=== PATIENT | female | born 1960 | race Caucasian/White ===

== ENCOUNTER 2017-07-12 19:58 | Inpatient (IN) | payer OTHER, MEDICAID ==
[~2017-07-12] VITALS: Ht 162.6 cm; Wt 102.1 kg
[~2017-07-12 19:58] MED LIST: ALBUTEROL2.5 MG/0.5 INH; CELEXA20 MG PO; KLOR-CON 1010 MEQ PO; LASIX 40 MG TAB40 M2 PO; LEVOFLOXACIN750 MG PO; MONTELUKAST SOD10 MG PO; PREDNISONE 10 M10 MG PO; PRINIVIL20 MG PO; PROAIR HFA8.5 GM; PROAIR HFA8.5 GM INH; SYMBICORT160 MCG/4. INH; TUDORZA PRESS400 MCG IH; ZESTORETIC 20-1 EAC3 PO
[2017-07-12 20:06] VITALS: BP 145/83
[2017-07-12] MEDS ORDERED: METHOTREXATE 22.5 MG PO (20:09)
[2017-07-12] MEDS ORDERED: VITAMIN D5000 UNI1 PO (20:10)
[2017-07-12 20:55] LABS: HEMATOCRIT 42.9 % (37.0-47.0); HEMOGLOBIN 14.4 gm/dL (12.0-15.0); MCHC 33.4 g/dL (28.0-37.0); MCV 95.9 fL (80.0-100.0); MPV 7.6 fl. (7.2-11.1); NUCLEATED RBCS 0 /100WBC; PLATELET COUNT* 400 thou/uL (150-400); RBC 4.48 mil/uL (4.20-5.00); RDW-CV 14.2 % (10.5-14.5); WBC 19.4 thou/uL (4.0-11.0)
[2017-07-12 21:04] LABS: CALCIUM 9.1 mg/dL (8.5-10.1); CREATININE 0.9 mg/dL (0.6-1.3); POTASSIUM 4.2 mmol/L (3.5-5.1)
[2017-07-12 21:14] LABS: ALBUMIN 3.9 g/dL (3.4-5.0); MAGNESIUM 2.3 mg/dL (1.8-2.4); TOTAL BILIRUBIN 0.3 mg/dL (<0.1-1.0); TOTAL PROTEIN 7.7 g/dL (6.4-8.2)
[2017-07-12 21:22] LABS: ABSOLUTE LYMPHOCYTES 2.7 thou/uL (0.8-5.3); ABSOLUTE MONOCYTES 0.8 thou/uL (0.0-1.2); ABSOLUTE NEUTROPHILS 15.9 thou/uL (1.6-8.1)
[2017-07-12 21:24] LABS: PLATELET ESTIMATE ADEQUATE
[2017-07-12 22:23] LABS: BE 7.8 mmol/L (-2 to +3); HCO3 34.2 mmol/L (22.0-26.0); PO2 60.2 mmHg (75.0-100.0); pH 7.419 (7.340-7.450)
[2017-07-12 22:28] LABS: PCO2 54.1 mmHg (35.0-45.0)
[2017-07-12 22:58] VITALS: BP 130/80
[2017-07-13] MEDS ORDERED: IBUPROFEN 400400 M2 PO (01:11)
[2017-07-13 04:22] VITALS: BP 131/75
[2017-07-13 07:53] VITALS: BP 124/80
--- NOTE | 2017-07-13 09:03 | NUR ---
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, TRACING SR- UPON ASSESSMENT PT NOTED TO BE RESTING IN BED, WATCHING TV- PT A&O X4- CONTINENT OF BOWEL AND BLADDER- SBA WITH TRANSFERS FOR SAFETY- DIMINISHED IN UPPER LOBES, WHEEZING NOTED IN BASES- DYSPNEA NOTED ON EXERTION- VSS, O2 SAT 92% ON 3.5 L VIA NC- ABDOMEN SOFT/ROUND/NON-TENDER, BS X4 QUADS- PT REPORTS LAST BM 07/12/17- IV NOTED TO LEFT AC INTACT AND SL- IV ABT GIVEN THIS AM PRESCIBED, NO ADVERSE REACTIONS TO NOTE- NICOTENINE PATCH APPLIED THIS AM TO RIGHT UPPER SHOULDER PRESCIBED/INDICATED- TRACE EDEMA NOTED TO BILATERAL ANKLES- PT DENIES ANY C/O PAIN/DISCOMFORT AT THIS TIME- GOOD PO INTAKE NOTED THIS AM WITH BREAKFAST- CALL LIGHT AND PERSONAL BELONGINGS WITH IN REACH- HOURLY ROUNDS IN PLACE R/T SAFETY/NEEDS- ALL NEEDS MET AT THIS TIME-WCTM
--- NOTE | 2017-07-13 09:33 | EKG ---
[place] [address] ELECTROCARDIOGRAM REPORT Name: THELMA SOLIS Room: [address] IN [facility]#: [id number] Admission: 07/12/17 Attend Phys: Agustín Griffin MD Discharge: Date of : 60 Report #: [id number] THIS REPORT FOR: //name// [facility] ED Test Date: 2017-07-12 Test Time: 20:37:16 Pat Name: THELMA SOLIS Department: Room: Gender: F Cherry Cutter: : 1960 Requested By: Laura Webber Order Number: [id number] MD: Kota Samuel Measurements Intervals [place] Rate: 90 P: 51 ND: 167 QRS: 68 QRSD: 95 T: 64 QT: 355 QTc: 435 Interpretive Statements Sinus rhythm Probable left atrial enlargement Borderline T abnormalities, anterior leads Compared to ECG 01/08/2014 23:05:57 T-wave abnormality now present ST (T wave) deviation no longer present Electronically Signed On 07-13-2017 9:33:36 CDT by Kota Samuel [email or web address] <ELECTRONICALLY SIGNED> By: Kota Samuel MD, [facility] 07/13/17 0933 36 36 Kota Samuel MD, [facility] /EPI
[2017-07-13 11:56] VITALS: BP 152/55
--- NOTE | 2017-07-13 14:15 | NUR ---
Pt is A&O. Resides at home with her ex . Pt is independent with ADLs, continues to cook, and do some of the cleaning, ex does the rest. Pt doesn't drive, stating "only because I didn't renew my license." Ex and dtr provide transportation to appts and to run errands. Pt wears home o2 continuously, provided through [employer]. No hx of HH or SNF. Pt's goal is to return home once medically stable for dc. No needs anticipated. Following.
[2017-07-13 15:14] VITALS: BP 141/69
--- NOTE | 2017-07-13 16:24 | NUR ---
PT CURRENLTY RESTING IN BED, EYES CLOSED-FLOOR REPRESENTATIVE IN PLACE AND CONTINUED ORDERED, TRACING SR- IV TO LEFT AC HARD TO FLUSH, AND SITUATIONAL, NEW 20 GAUGE PLACED TO RIGHT WRIST AND SL- IV ROCEPHIN AND ZITHROMAX D/C'D THIS SHIFT WITH IV LEVAQUIN STARTED AND GIVEN THIS SHIFT ORDERED, NO ADVERSE REACTIONS NOTED- PT C/O THROAT PAIN, NOTED TO HAVE THRUSH- NEW ORDERS NOTED FOR NYSTATIN QID, CEPACOL THROAT LOZENGE Q 3 HOURS PRN, AND TETRACAINE THROAT SPRAY Q 1 HOUR NEEDED NOTED- PT CONTINUES TO HAVE SOA- REFUSSING PT R/T WEAKNESS AND SOA- PT NOTED TO BE RESTING INTERMITENTLY THIS SHIFT- DENIES ANY C/O PAIN/DISCOMFORT AT THIS TIME- CALL LIGHT AND PERSONAL BELONGINGS WITH IN REACH- MAKES NEEDS KNOWN- [facility]
[2017-07-13 20:00] VITALS: BP 139/60
[2017-07-14] VITALS: BP 134/65
[2017-07-14 04:00] VITALS: BP 124/58; BP 154/73
[2017-07-14 04:25] LABS: HEMATOCRIT 40.5 % (37.0-47.0); HEMOGLOBIN 13.4 gm/dL (12.0-15.0); MCH 31.9 pg (26.0-34.0); MCV 96.6 fL (80.0-100.0); MPV 7.8 fl. (7.2-11.1); RBC 4.2 mil/uL (4.20-5.00); RDW-CV 14.5 % (10.5-14.5); WBC 17.5 thou/uL (4.0-11.0)
--- NOTE | 2017-07-14 05:24 | NUR ---
PT CARE ASSUMED AFTER REPORT. ASSESSMENT COMPLETE. SR ON MONITOR. O2 3.5L NC. DENIES PAIN. UP AD INDRA WITH STEADY GAIT. CALL LIGHT IN REACH. BED IN LOWEST POSITION. PROGRESSING TOWARDS GOALS.
[2017-07-14 05:31] LABS: ALBUMIN 3.4 g/dL (3.4-5.0); CALCIUM 9.4 mg/dL (8.5-10.1); CREATININE 0.9 mg/dL (0.6-1.3); MAGNESIUM 2.4 mg/dL (1.8-2.4); POTASSIUM 4.4 mmol/L (3.5-5.1); TOTAL BILIRUBIN 0.3 mg/dL (<0.1-1.0); TOTAL PROTEIN 6.5 g/dL (6.4-8.2)
--- NOTE | 2017-07-14 07:51 | CON ---
[address] [address] CONSULTATION Name: WILLTHELMA L Room: [address] IN [facility].#: [id number] Admission: 07/12/17 Attend Phys: Agustín Griffin MD Discharge: Date of : 60 Report #: [id number] THIS REPORT FOR: //name// CC: Agustín Munoz REQUESTING PHYSICIAN: Dr. Smita Ochoa. REASON FOR CONSULTATION: COPD exacerbation, hypercapnia and respiratory failure. DISCUSSION: The patient is a 57-year-old woman who has a history of COPD. She tells me she has not been told how severe it is. She has had PFTs done in the past. She has been on O2 for some time. She is on chronic steroids, but that is for rheumatoid arthritis. She continues to smoke 2 packs of cigarettes per day up until this admission. She has not been feeling well recently. She has had several rounds of antibiotics given to her by a nurse practitioner that she sees in the physician's office. She did have a burst of steroids as well. She was continuing to get worse and was having a lot of cough. Her sputum initially had been green. More recently it has cleared up. It has been pale yellow or white. No hemoptysis. She was feeling much worse and presented to the Emergency Department. She was seen here yesterday evening. Blood gases did reveal hypercapnia. However, it is also quite similar to what it was when she was in the hospital here several years ago. Our group did see her at that time. Normally at home, she is on O2 at 3 liters. She has been on O2 for at least the last 5-6 years. She is not steroid dependent for her COPD as noted. She is on disability for her lungs. Our group did see when she was here in the hospital previously. 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 She just had recent PFTs done and was due for followup in order to go over those results. At home, besides the O2 her baseline prednisone dose is 2.5 mg a day. She has DuoNeb, which she does every 4 hours and occasionally every 3 hours, Symbicort twice a day and p.r.n. Ventolin inhaler. She is also on montelukast 10 mg a day. The ER noted that she was on Tudorza at home, but she denies that. History also remarkable that she has had TB testing because of her rheumatoid arthritis and medications used. This was the blood test, which I assume was either the QuantiFERON Gold or the T-SPOT. That was negative. She had a variety of tests done recently. Apparently, her miller head wet process had imaging studies done of her chest. There was concern about a nodular spot. She had a CT chest done at [facility]. This was followed up with a PET scan and she was told that it was unremarkable. We do not have any of that information here. She has rheumatoid arthritis. She has been on methotrexate since about April of this year. Started off on taking 6 pills weekly and just recently increased to 8 pills (I presumed they are 2.5 mg size). However, she cannot [address] [place] [address] CONSULTATION Name: THELMA SOLIS Room: [address] IN [facility].R.#: [id number] Admission: 07/12/17 Attend Phys: Agustín Griffin MD Discharge: Date of : 60 Report #: [id number] take the methotrexate when she is on antibiotics, so consequently has missed doses. It has helped. She has had no prior history of thromboembolic disease. She has had sleep study done in the past, which was negative for sleep apnea. She is feeling better today relative to when she came in the Emergency Department yesterday afternoon. However, she would like to go home. Notes she is very tired and cannot sleep in the hospital. PAST MEDICAL HISTORY: Besides severe COPD and rheumatoid arthritis, is remarkable for prior cholecystectomy, hysterectomy, dyslipidemia and depression. SOCIAL HISTORY: She is disabled. Otherwise, has held a variety of jobs over the years. She smokes 2 packs of cigarettes per day. Her smokes heavily in the house as well. REVIEW OF SYSTEMS: ROS was done. Note positives as above. She does note with the methotrexate she has been on, her joint pain has improved. The rheumatoid nodules that she has had have decreased in size. She has had some lower extremity edema recently, which was new for her. She at times does not sleep well. She also notes her physicians will not give her sleeping pills and she is cognizant as to why. No syncopal episodes. He has been getting progressively weaker and run down. FAMILY HISTORY: Positive for COPD. Her mother of it. Family history is also positive for coronary artery disease. PHYSICAL EXAMINATION: GENERAL APPEARANCE: We have a woman looks older than stated age. She is obese. She is resting in bed and has O2 running via nasal cannula. She is alert, able to speak in full sentences and is in no acute distress. HEENT: Head is normocephalic. Sclerae are nonicteric. Mucous membranes are a little dry. NECK: Large neck, but no adenopathy is noted. No JVD. No supraclavicular adenopathy. HEART: Tones are distant, but are regular. Mildly tachycardic. She has a grade 1/6 systolic murmur. LUNGS: Show breath sounds to be diminished. She has a prolonged expiratory phase. She has some rhonchi and expiratory wheezes heard. No CVA tenderness. ABDOMEN: Obese, but soft. EXTREMITIES: She has no clubbing. Lower extremities revealed just some trace pretibial edema. SKIN: Warm and dry. NEUROLOGIC: She is alert and oriented x 3. LABORATORY AND X-RAY FINDINGS: Arterial blood gases when she was admitted last night revealed a pH of 7.42, pCO2 of 54, pO2 of 60, bicarbonate 34, [place] [address] CONSULTATION Name: THELMA SOLIS Zane Room: [address] IN [facility]#: [id number] Admission: 07/12/17 Attend Phys: Agustín Griffin MD Discharge: Date of : 60 Report #: [id number] 89%. Carboxyhemoglobin 3.2%. Her pCO2 was similar to what it was in 2013 when she was hospitalized. White blood cell count 19,400, hemoglobin 14.4, hematocrit of 42.9, platelets are normal. Potassium is 4.2, BUN of 14, creatinine 0.9. X-rays were reviewed. She had a PA and lateral done yesterday. Compared to studies done 4 years ago, she does have some prominence of markings in the lower lung carvalho which may be infiltrates. She does have some chronic scarring noted. She had a CT chest done of her chest 4 years ago when she was here. It showed emphysematous changes with bullae noted. No nodules noted at that time. MEDICATIONS: Her current medications in the hospital have been Lovenox for DVT prophylaxis, budesonide, montelukast, Nystatin swish and swallow (for her thrush), levofloxacin, hydrochlorothiazide, vitamin D, lisinopril, Lasix, citalopram, potassium, nicotine patch, methylprednisolone 62.5 mg every 8 hours, DuoNeb every 4 hours and p.r.n., Protonix and p.r.n. ibuprofen. IMPRESSION: 1. Bibasilar infiltrates, suspect pneumonia. Some of this could be atelectasis and old scarring as well. 2. Chronic obstructive pulmonary disease exacerbation. Baseline appears to have severe disease. 3. Chronic respiratory failure. She is chronically hypercapnic as well as hypoxic. 4. Ongoing tobacco abuse. She smokes at least 2 packs of cigarettes per day. Also, has significant exposure to secondhand smoke as her is a heavy smoker as well. Unless she quit smoking completely, she will have a much more rapid decline of her lung function. We will have a very guarded prognosis. 5. Rheumatoid arthritis. She is on methotrexate and chronic steroids. This will also contribute to immunosuppressive state. 6. Obesity. 7. Edema may be related to her lung disease. May have a component of right heart failure. EF was normal 4 years ago. RECOMMENDATIONS: 1. I will add Brovana since she is on Symbicort at home. 2. Otherwise, agree with IV steroids and bronchodilator therapy and antibiotics. 3. Repeat chest x-ray in several days. 4. A 100% smoking cessation is certainly imperative. 5. Unfortunately given her medication usage for her RA along with the smoking, she is at higher risk for developing respiratory tract infections. These will also be more difficult to recover from and will also contribute to more rapid decline in her pulmonary functions. [address] [place] [address] CONSULTATION Name: THELMA SOLIS Room: [address] IN M.R.#: [id number] Admission: 07/12/17 Attend Phys: Agustín Griffin MD Discharge: Date of : 60 Report #: [id number] 6. Consider repeat sleep study in the future, has had in the past, may be reasonable to repeat given her body habitus and her underlying lung disease. <ELECTRONICALLY SIGNED> By: Twyla Hodges MD 07/14/17 0751 [id number] Hodges MD /nt
[2017-07-14 08:30] VITALS: BP 137/72
--- NOTE | 2017-07-14 12:59 | NUR ---
ASSUMED PT CARE AT 0700 PT IS ALERT AND ORIENTED X 4 PT IS UP AD INDRA STEADY GAIT PT IS NOT A FALL RISK, PT IS ON 2L/NC, PT IS SR ON THE MONITOR, PT IS ANXIOUS AND INAPPROPRIATE TOWARDS STAFF YELLS AT NURSE, PT IS MEDICAL SURGICAL STATUS PER PHYSICIAN, WILL CONTINUE TO MONITOR
[2017-07-14 13:00] VITALS: BP 142/64
[2017-07-14 16:07] VITALS: BP 136/64
[2017-07-14 20:25] VITALS: BP 144/78
--- NOTE | 2017-07-15 02:48 | NUR ---
ASSUMED CARE OF PT AT 1900. PT IS ALERT AND ORIENTED. VSS. PERRLA. PT IS SOA AT TIMES. PT IS ON 4 LITERS O2. INSPIRATORY AND EXPIRATORY WHEEZES ARE AUDIBLE. PT IS IN SINUS RYTHM ON THE TELEMETRY. PT IS RESTING COMFORTABLY IN BED.RESPIRATIONS ARE EVEN AND NONLABORED. WILL CONTINUE TO MONITOR PT.
[2017-07-15 04:37] LABS: HEMATOCRIT 40.4 % (37.0-47.0); HEMOGLOBIN 13.4 gm/dL (12.0-15.0); MCH 31.9 pg (26.0-34.0); MCHC 33.2 g/dL (28.0-37.0); MPV 7.9 fl. (7.2-11.1); RBC 4.21 mil/uL (4.20-5.00); RDW-CV 14.3 % (10.5-14.5); WBC 17.6 thou/uL (4.0-11.0)
[2017-07-15 05:11] LABS: CALCIUM 9.5 mg/dL (8.5-10.1); CREATININE 0.9 mg/dL (0.6-1.3); MAGNESIUM 2.5 mg/dL (1.8-2.4); POTASSIUM 4.1 mmol/L (3.5-5.1)
[2017-07-15 08:00] VITALS: BP 143/71
--- NOTE | 2017-07-15 12:15 | NUR ---
ASSUMED CARE OF PT THIS AM ASSESSED AND DOCUMENTED. PT IS MED SURG STATUS. SHE IS A&O WITH NO C/O PAIN. VSS WNL. PT IS AFEBRILE. LUNGS ARE COARSE WITH NOTED WHEEZING. PT IS ON 4.5L OF 02. EDUCATION GIVEN ON DEMAND. SMOKING CESSATION DISCUSSED. DAUGHTER HAS BEEN AT BEDSIDE. PT TRANSFERRED TO [facility]. REPORT WAS GIVEN TO HANNA VALENTIN.
[2017-07-15 12:40] VITALS: BP 118/70
[2017-07-15 15:29] VITALS: BP 137/70
--- NOTE | 2017-07-15 16:22 | NUR ---
ASSUMED CARES OF PT AT 1240 FROM TELEMETRY TRANSFER. RECEIVED REPORT FROM [facility] PRIOR TO TRANSFER. PT A&O X4, MED/SURG STATUS, ADMITTED FOR SOB, PNEUMONIA, COPD EXACERBATION. VSS ON 4 1/2 L O2 NC. PT WEARS 3 1/2 AT HOME. PT DENIES PAIN. LUNGS COARSE/WHEEZY BILATERALLY, MORESO ON RIGHT LUNG PER AUSCULTATION. HRRR PER AUSCULTATION. SKIN INTACT, SCATTERED SCARS AND BRUISING. PT UP INDEPENDENTLY, STEADY GAIT. LEFT AC IV 22 GAUGE PATENT TO ABT TREATMENT, PRESENTLY SALINE LOCKED. FULL CODE. SOA ON ACTIVITY. CONSULTS - PULMONARY AND HIMS. REGULAR DIET. FAMILY AT BEDSIDE. PT COOPERATIVE AND FRIENDLY. HOURLY ROUNDING TO CONTINUE. WILL CONTINUE TO MONITOR PT STATUS AND PROGRESS.
--- NOTE | 2017-07-15 20:04 | NUR ---
REPORT TO SEPTIC TANK INSTALLER FOR CONTINUED CARES. PT REMAINS STABLE, IN BED, BED IN LOW LOCKED POSITION. PT UP INDEPENDENTLY. IBUPROFEN REDUCED HEADACHE TO TOLERABLE LEVEL 2/10. PT WATCHING TV AT THIS TIME FROM BED. HOURLY ROUNDING COMPLETED. NURSES NOTES AND ASSESSMENT FROM TELEMETRY REVIEWED AND AGREED WITH.
[2017-07-15 20:20] VITALS: BP 134/78
[2017-07-15 23:59] VITALS: BP 140/78
--- NOTE | 2017-07-16 06:50 | NUR ---
PT SLEPT ON AND OFF THIS SHIFT. ASSESSMENT DOCUMENTED. MEDS GIVEN PER E-MAY. IV PATENT. RT WENT IN TO GIVE BREATHING TREATMENTS AT BEGINING OF SHIFT AND FOUND PATIENT IN RESPIRATORY DISTRESS AND ATTENDED TO PATIENT AND INFORMED THIS RN. PT STATED SHE DID NOT INFORM NURSE BECAUSE SHE "DID NOT WANT TO BE A BOTHER", PT EDUCATED TO INFORM NURSE IF SHE FELT SHORT OF AIR, PT STATED UNDERSTANDING. NO REPORTS OF PAIN OR NAUSEA. PT UP TO BSC THROUGH SHIFT. WILL CONTINUE WITH PLAN OF CARE.
[2017-07-16 08:18] VITALS: BP 125/58
--- NOTE | 2017-07-16 14:15 | NUR ---
ASSUMED CARES OF PT AT 0700. PT IN BED, BED IN LOW LOCKED POSITION, CALL BUTTON AND PERSONAL ITEMS IN PT REACH. PT A&O X4, COOPERATIVE, PLEASANT, OCC. ANXIOUS R/T RESPIRATORY DIFFICULTY/SOA ON EXERTION. HRRR PER AUSCULTATION, LUNGS COARSE AND WHEEZES HEARD PER AUSCULTATION. VSS ON 5L O2 NC. AFEBRILE, PT DENIES PAIN AT THIS TIME. LAST BM 07/14/17. SKIN INTACT, SCATTERED BRUISING, SCARS, DRY SKIN. PT REFUSES SCD'S THIS SHIFT. PT UP INDEPENDENTLY TO BSC. LEFT AC IV PATENT TO FLUSH AND ABT'S. ABD SOFT AND NON TENDER PER PALPATATION. PT REFUSES BATH/SHOWER THIS SHIFT. EDUCATION REGARDING SMOKING CESSATION AND OPTIONS. PT PROGRESSING TOWARDS GOAL. OCC. FRUSTRATED WITH BREATHING DIFFICULTY AND PT GETS ANXIOUS. WILL CONTINUE TO MONITOR PT PROGRESS AND STATUS.
[2017-07-16 15:51] VITALS: BP 143/73
--- NOTE | 2017-07-16 18:56 | NUR ---
REPORT TO BE GIVEN TO SUSTAINABILITY ENGINEER FOR CONTINUED CARES. PT REMAINS STABLE, PT STATED SHE FELT SOME BETTER AFTER SOLU-MEDROL ADMINISTERED IVP. LOOSE, NON PRODUCTIVE COUGH, NO SPUTUM PRODUCED. BM TODAY BSC. PT STILL SOA ON EXERTION. RT GIVING SCHEDULED AND PRN BREATHING TREATMENTS. PT STATED SHE WAS SAD THAT SHE HAS A DIFFICULT TIME STOPPING HER SMOKING HABIT AND MEDICAL STAFF DONT SEEM TO UNDERSTAND. EDUCATION AND DISCUSSION BETWEEN PT AND NURSE ON OPTIONS, SOLUTIONS. PT COOPERATIVE, PLEASANT AND OCC. ANXIOUS. HOURLY ROUNDING COMPLETED. PT UP TO BSC INDEPENDENTLY, WILL CALL FOR ASSISTANCE NEEDED.
[2017-07-16 20:15] VITALS: BP 156/66
--- NOTE | 2017-07-17 05:47 | NUR ---
PATIENT SLEPT PART OF THE NIGHT. IV REMAINS SALINE LOCKED. PATIENT WAS GIVEN IBUPROFEN TWICE FOR A HEADACHE WITH GOOD RELIEF. PATIENT REMAINS ON OXYGEN AT 5L CONTINUES TO DESAT TO MID 80'S WITH ACTIVITY BUT COMES BACK UP TO 90-92%. WILL CONTINUE TO MONITOR.
[2017-07-17 09:32] VITALS: BP 154/72
[2017-07-17 16:00] VITALS: BP 152/70
--- NOTE | 2017-07-17 17:14 | NUR ---
ASSUMED CARE OF APTIENT AFTER MORNING REPORT. ALERT AND ORIENTED X4. ASSESSMENT COMPLETED AND CHARTED. VSS ON 5 LITERS 02. PATIENTS IV WAS LEAKING AND A NEW LINE WAS PLACED IN THE LEFT HAND. IV SOLUMEDROL AND ANTIBIOTICS ADMINISTERED ORDERED. BREATHING TREATMENTS ALSO ADMINISTERED ORDERED BY RT. PATIENT HAS HAD NO COMPLAINTS OF PAIN OR NAUSEA THIS SHIFT. SOME SOA AND DESATURATION EXPERIENCED UPON EXERTION BUT RESOLVES WITH REST. PATIENT WORKED WITH OT TODAY AND DID WELL. HOURLY ROUNDS MAINTAINED, CALL LIGHT IS WITHIN REACH AND NURSING WILL CONTINUE TO MONITOR.
[2017-07-17 20:00] VITALS: BP 135/84
[2017-07-18 00:12] VITALS: BP 131/68
--- NOTE | 2017-07-18 05:16 | NUR ---
ASSUMED CARE OF PT AT 1900 ALERT AND ORIENTED X4 VS AND ASSESSMENT STABLE. PT VOICED NO CONCERNS AND SLEPT THROUGH THE NIGHT. WILL CONTINUE PLAN OF CARE.
[2017-07-18 08:00] VITALS: BP 142/82
[2017-07-18 16:11] VITALS: BP 141/65
[2017-07-18 20:00] VITALS: BP 149/70
--- NOTE | 2017-07-19 04:35 | NUR ---
ASSUMED CARE OF PT AT 1900 PT ALERT AND ORIENTED X 4. VS AND ASSESSMENT STABLE. PT DENIED ANY COMPLAINTS AND SLEPT THROUGH THE NIGHT. WILL CONTINUE PLAN OF CARE.
[2017-07-19 08:59] VITALS: BP 132/63
--- NOTE | 2017-07-19 09:00 | NUR ---
ASSUMED CARE OF PT AROUND 0730 THIS AM. REFER TO ASSESSMENT. ATTEMPTING TO TITRATE OXYGEN THIS AM. VSS. PT VOICES NO CONCERNS. CLWR. WCTM.
[2017-07-19 13:14] LABS: CALCIUM 9.1 mg/dL (8.5-10.1); CREATININE 0.9 mg/dL (0.6-1.3); MAGNESIUM 2.4 mg/dL (1.8-2.4); POTASSIUM 3.6 mmol/L (3.5-5.1)
--- NOTE | 2017-07-19 14:52 | NUR ---
PT REFUSED US TO BLE.
[2017-07-19 16:10] VITALS: BP 130/67
--- NOTE | 2017-07-19 17:12 | NUR ---
PT PROGRESSING TOWARDS GOALS THIS SHIFT. ABLE TO TITRATE OXYGEN TO 4.5 L/NC. PT REPORTS FEELING MUCH BETTER TODAY AND ABLE TO GET UP AND WALK TO BATHROOM A FEW TIMES. PT ANTICIPATES POSSIBLE DC HOME TOMORROW. NO OTHER CONCERNS AT THIS TIME. CLWR. WCTM.
[2017-07-19 21:30] VITALS: BP 132/62
[2017-07-20 04:38] LABS: HEMOGLOBIN 14.5 gm/dL (12.0-15.0); MCH 32.1 pg (26.0-34.0); MCHC 33.7 g/dL (28.0-37.0); MCV 95.3 fL (80.0-100.0); MPV 8.5 fl. (7.2-11.1); NUCLEATED RBCS 0 /100WBC; PLATELET COUNT* 283 thou/uL (150-400); RBC 4.52 mil/uL (4.20-5.00); RDW-CV 14.1 % (10.5-14.5); WBC 17.3 thou/uL (4.0-11.0)
[2017-07-20 04:51] LABS: ALBUMIN 3.3 g/dL (3.4-5.0); CALCIUM 9.1 mg/dL (8.5-10.1); CREATININE 0.9 mg/dL (0.6-1.3); MAGNESIUM 2.4 mg/dL (1.8-2.4); POTASSIUM 4.2 mmol/L (3.5-5.1); TOTAL BILIRUBIN 0.4 mg/dL (<0.1-1.0); TOTAL PROTEIN 5.9 g/dL (6.4-8.2)
--- NOTE | 2017-07-20 05:07 | NUR ---
PATIENT ALERT AND ORIENTED. VITALS STABLE ON 4.5 LITERS OF OXYGEN. STATES THAT SOB IS BETTER. NONPRODUCTIVE COUGH. UP INDPENDENTLY. NO SIGNS OF ANY RESPIRATORY DISTRESS. HOURLY ROUNDS. NURSING WILL CONTINUE TO MONITOR.
[2017-07-20 05:46] LABS: ABSOLUTE LYMPHOCYTES 0.9 thou/uL (0.8-5.3); ABSOLUTE MONOCYTES 1.2 thou/uL (0.0-1.2); ABSOLUTE NEUTROPHILS 15.2 thou/uL (1.6-8.1); ANISOCYTOSIS 1+; PLATELET ESTIMATE ADEQUATE; POIKILOCYTOSIS 1+
[2017-07-20 08:03] VITALS: BP 142/72
--- NOTE | 2017-07-20 10:21 | NUR ---
ASSUMED CARE OF PT THIS AM AROUND 0715- UPON ASSESSMENT PT NOTED TO BE RESTING IN BED, WATCHING TV- PT A&O X4- CONTINENT OF BOWEL AND BLADDER- UP AD-INDRA WITH STEADY GAIT NOTED- WHEEZING NOTED WITH NON-PRODUCTIVE COUGH- VSS, O2 SAT 92% ON 4L VIA NC-DYSPNEA NOTED-ABDOMEN SOFT/ROUND/NON-TENDER, BS X4 QUADS- PT REPORTS TO HAVE HAD LAST BM 07/19/17- +1 EDEAM NOTED TO BILATERL ANKLES, LASIX 40MG IV X1 GIVEN THIS AM PRESCIBED- IV TO LEFT HAND NOTED TO INFILTRATE- ORDERS OBTAINED FOR OKAY TO LEAVE IV OUT THIS SHIFT PER - MEICATIONS CHANGED TO PO PER THIS AM- GOOD PO INTAKE NOTED THIS AM WITH BREAKFAST- PT DENIES ANY C/O PAIN/DISCOMFORT AT THIS TIME- CALL LIGHT AND PERSOANL BELONGINGS WITH IN REACH- HOURLY ROUNDS IN PLACE R/T SAFETY/NEEDS- ALL NEEDS MET AT THIS TIME- WCTM
--- NOTE | 2017-07-20 15:00 | NUR ---
PT.WANTING A NEW CONCENTRATOR FOR HER O2 AND A NEW NEBULIZER. SHE USES [employer] FOR HER DME. CM CONTACTED [facility]. SHE SAID THEY WOULD BE GLAD TO PROVIDE A NEW CONCENTRATOR AND NEBULIZER IF THE PT.WOULD LIKE TO PAY HER $3000 IN COLLECTIONS. NOTIFIED PT. SHE SAID SHE USED [employer] FOR HER O2 BEFORE SHE HAD INSURANCE AND SHE GUESSED IT ADDED UP TO THAT AMOUNT. SHE SAID SHE CAN NOT AFFORD TO PAY THAT. SHE ASKED IF SHE COULD AT LEAST GET A NEBULIZER. EXPLAINED I DIDN'T FEEL THAT [facility] WOULD ISSUE HER A NEBULIZER EITHER IF SHE OWED THEM MONEY. SHE GOT ANGRY AND SAID I WILL JUST BUY A NEW ONE MYSELF THEN. GAVE HER THE PHONE NUMBER FOR [facility] AND TOLD HER THEY MIGHT COME OUT TO SERVICE CONCENTRATOR IF SHE CALLED. SHE SAID THERE'S NOTHING WRONG WITH IT,SHE JUST THOUGHT IT MIGHT BE DIRTY,ETC.
[2017-07-20 15:58] VITALS: BP 110/57
--- NOTE | 2017-07-20 16:19 | NUR ---
PT ALEK RESTING IN BED, WATCHING TV- PT UP TO BED SIDE CHAIR THIS SHIFT, WORKING WITH THERAPIES PRESCIBED AND TOLERATING WELL- GOOD PO INTAKE NOTED THIS SHIFT WITH MEALS- DENIES ANY C/O PAIN/DISCOMFORT AT THIS TIME- CALL LIGHT AND PERSONAL BELONGINGS WITH IN REACH- ALL NEEDS MET AT THIS TIME-WCTM
[2017-07-20 20:30] VITALS: BP 144/79
--- NOTE | 2017-07-21 07:42 | NUR ---
Alert and oriented x 4. O2 at 4L n/c she's up independently in the room. She did have ibuprofen for headache last evening. She did go outside in a wheelchair with O2 with her daughter last night for about 30 minutes. She has slept intermittenly in the recliner.
[2017-07-21 08:05] VITALS: BP 125/52
[2017-07-21] MEDS ORDERED: PREDNISONE 10 M10 MG PO (09:05)
[2017-07-21] MEDS ORDERED: MUCINEX1200 MG PO (09:05)
[2017-07-21] MEDS ORDERED: LEVAQUIN 750 M750 MG PO (09:05)
[2017-07-21] MEDS ORDERED: DIFLUCAN150 M1 PO (09:05)
[2017-07-21] MEDS ORDERED: ALBUTEROL SULFAT4 M1 PO (09:10)
[2017-07-21 12:24] VITALS: BP 125/52
[2017-07-21 13:15] VITALS: BP 125/52
--- NOTE | 2017-07-21 13:16 | NUR ---
PATIENT LEFT UNIT AT 1315 BY WHEELCHAIR WITH NURSING STAFF. EDUCATED PATIENT ON DISCHARGE INSTRUCTIONS AND NEW MED SCRIPTS. PATIENT VERBALIZED UNDERSTANDING. ALL BELONGINGS LEFT WITH PATIENT.
== END 2017-07-21 13:21 | disposition home or self-care (01) | DRG 177 ==
LOC: M.ERS 19:58 → M.2W 21:59 → M.TBA-ER 21:59 → M.2W 23:25 → M.ORTHSURG 07-15 12:50
PROVIDERS: Family Medicine; Internal Medicine; Internal Medicine Critical Care Medicine; Nurse Practitioner; ADMIT Internal Medicine
DX: J15.6 Pneumonia due to other Gram-negative bacteria (principal); J96.21 Acute and chronic respiratory failure with hypoxia; J96.22 Acute and chronic respiratory failure with hypercapnia; J44.1 Chronic obstructive pulmonary disease with (acute) exacerbation; B37.0 Candidal stomatitis; J69.0 Pneumonitis due to inhalation of food and vomit; F32.9 Major depressive disorder, single episode, unspecified; M06.9 Rheumatoid arthritis, unspecified; E78.5 Hyperlipidemia, unspecified; F17.210 Nicotine dependence, cigarettes, uncomplicated; E66.9 Obesity, unspecified; Z68.38 Body mass index [BMI] 38.0-38.9, adult; Z90.49 Acquired absence of other specified parts of digestive tract; Z90.710 Acquired absence of both cervix and uterus; Z79.899 Other long term (current) drug therapy; Z71.6 Tobacco abuse counseling; Z88.1 Allergy status to other antibiotic agents; Z82.49 Family history of ischemic heart disease and other diseases of the circulatory system; Z82.5 Family history of asthma and other chronic lower respiratory diseases

== ENCOUNTER 2017-08-05 22:51 | Emergency (ER) | payer OTHER, MEDICAID ==
[~2017-08-05] VITALS: Ht 162.6 cm; Wt 99.8 kg
[~2017-08-05 22:51] MED LIST changes: +ALBUTEROL SULFAT4 M1 PO; +DIFLUCAN150 M1 PO; +IBUPROFEN 400400 M2 PO; +LEVAQUIN 750 M750 MG PO; +METHOTREXATE 22.5 MG PO; +MUCINEX1200 MG PO; +VITAMIN D5000 UNI1 PO
[2017-08-05] MEDS ORDERED: CYCLOBENZAPRINE5 MG PO (23:02)
[2017-08-05 23:21] LABS: HEMATOCRIT 35.9 % (37.0-47.0); HEMOGLOBIN 12.2 gm/dL (12.0-15.0); MCH 32.3 pg (26.0-34.0); MCV 94.8 fL (80.0-100.0); MPV 7.3 fl. (7.2-11.1); NUCLEATED RBCS 0 /100WBC; PLATELET COUNT* 243 thou/uL (150-400); RBC 3.78 mil/uL (4.20-5.00); RDW-CV 13.8 % (10.5-14.5); WBC 13.2 thou/uL (4.0-11.0)
[2017-08-05 23:27] LABS: CALCIUM 9.1 mg/dL (8.5-10.1); CREATININE 0.7 mg/dL (0.6-1.3); POTASSIUM 3.8 mmol/L (3.5-5.1)
[2017-08-05 23:35] LABS: URINE BILIRUBIN NEGATIVE (Negative); URINE BLOOD NEGATIVE (Negative); URINE CLARITY CLEAR; URINE COLOR YELLOW; URINE GLUCOSE-RANDOM NEGATIVE (Negative); URINE KETONES NEGATIVE (Negative); URINE LEUKOCYTES-REFLEX NEGATIVE (Negative); URINE NITRITE-REFLEX NEGATIVE (Negative); URINE PROTEIN NEGATIVE (Negative)
[2017-08-05 23:37] LABS: ALBUMIN 3.2 g/dL (3.4-5.0); TOTAL BILIRUBIN 0.3 mg/dL (<0.1-1.0); TOTAL PROTEIN 6.5 g/dL (6.4-8.2)
[2017-08-06 00:14] LABS: ABSOLUTE LYMPHOCYTES 1.1 thou/uL (0.8-5.3); ABSOLUTE MONOCYTES 1.2 thou/uL (0.0-1.2)
[2017-08-06 00:15] LABS: PLATELET ESTIMATE ADEQUATE
[2017-08-06] MEDS ORDERED: LASIX 20 MG TAB20 MG PO (02:04)
[2017-08-06] MEDS ORDERED: FLEXERIL PO (02:04)
[2017-08-06] MEDS ORDERED: PERCOCET PO (02:04)
[2017-08-06 02:32] VITALS: BP 122/58
--- NOTE | 2017-08-06 16:02 | EKG ---
[place] [address] ELECTROCARDIOGRAM REPORT Name: THELMA SOLIS Room: [facility]#: [id number] Admission: 08/05/17 Attend Phys: Discharge: 08/06/17 Date of : 60 Report #: [id number] THIS REPORT FOR: //name// [facility] ED Test Date: 2017-08-05 Test Time: 23:33:22 Pat Name: THELMA SOLIS Department: Room: Gender: F Drill Presser: CRISTI : 1960 Requested By: Mayela Sylvester Order Number: [id number] MD: Prvain Harper Measurements Intervals [place] Rate: 82 P: 42 KS: 167 QRS: 60 QRSD: 97 T: 59 QT: 374 QTc: 437 Interpretive Statements Sinus rhythm Nonspecific T abnormalities, anterior leads Compared to ECG 07/12/2017 20:37:16 No significant changes Electronically Signed On 08-06-2017 16:02:13 CDT by Pravin Harper [email or web address] <ELECTRONICALLY SIGNED> By: Pravin Harper MD, [facility] 08/06/17 1602 [id number] 32 Pravin Harper MD, [facility] /EPI
== END 2017-08-06 02:33 | disposition home or self-care (01) ==
LOC: M.ERS 22:51
PROVIDERS: Emergency Medicine
DX: S32.020A Wedge compression fracture of second lumbar vertebra, initial encounter for closed fracture (principal); J44.9 Chronic obstructive pulmonary disease, unspecified; F32.9 Major depressive disorder, single episode, unspecified; Z88.1 Allergy status to other antibiotic agents; F17.210 Nicotine dependence, cigarettes, uncomplicated; X58.XXXA Exposure to other specified factors, initial encounter; Y93.89 Activity, other specified; Y92.89 Other specified places as the place of occurrence of the external cause; Y99.8 Other external cause status

== ENCOUNTER → 2018-01-09 | Outpatient (CLI) | payer OTHER, MEDICAID ==
[~2018-01-09] MED LIST changes: +CYCLOBENZAPRINE5 MG PO; +FLEXERIL PO; +LASIX 20 MG TAB20 MG PO; +PERCOCET PO
--- NOTE | 2018-01-09 16:02 | 2DMMODE ---
[place] [address] 2 D/M-MODE ECHOCARDIOGRAM Name: THELMA SOLIS Room: [facility]#: [id number] Admission: 01/09/18 Attend Phys: JOHANA Robles Discharge: Date of : 60 Date of Service: 01/09/18 1601 Report #: [id number] THIS REPORT FOR: //name// APPROVED REPORT Study performed: 01/09/2018 10:29:30 EXAM: Comprehensive 2D, Doppler, and color-flow Echocardiogram Patient Location: Out-Patient Status: routine BSA: 2.04 HR: 81 bpm BP: 112/75 mmHg Other Information Study Quality: Fair Technically limited study due to COPD. Indications Abnormal ECG 2D Dimensions IVSd: 11.48 (7-11mm) LVOT Diam: 20.00 (18-24mm) LVDd: 46.62 mm PWd: 8.36 (7-11mm) Ascending Ao: 29.28 (22-36mm) LVDs: 26.11 (25-40mm) Aortic Root: 22.80 mm Volumes Left Atrial Volume (Systole) LA ESV Index: 10.30 mL/m2 Aortic Valve AoV Peak Dk.: 1.28 m/s AO Peak Gr.: 6.59 mmHg LVOT Max P.98 mmHg AO Mean Gr.: 3.70 mmHg LVOT Mean P.85 mmHg LVOT Max V: 1.00 m/s AO V2 VTI: 22.41 cm LVOT Mean V: 0.62 m/s QUINTON (VTI): 2.52 cm2 LVOT V1 VTI: 18.00 cm Mitral Valve E/A Ratio: 1.05 MV Decel. Time: 217.55 ms MV E Max Dk.: 0.70 m/[place] [address] 2 D/M-MODE ECHOCARDIOGRAM Name: THELMA SOLIS Room: [facility]#: [id number] Admission: 01/09/18 Attend Phys: JOHANA Robles Discharge: Date of : 60 Date of Service: 01/09/18 1601 Report #: [id number] MV PHT: 63.09 ms MVA (PHT): 3.49 cm2 TDI E/Lateral E': 7.00 E/Medial E': 7.78 Medial E' Dk.: 0.09 m/s Lateral E' Dk.: 0.10 m/s Pulmonary Valve PV Peak Dk.: 1.13 m/s PV Peak Gr.: 5.11 mmHg Left Ventricle The left ventricle is normal size. There is normal LV segmental wall motion. There is normal left ventricular wall thickness. Left ventricular systolic function is normal. LVEF is 55-60%. Transmitral Doppler flow pattern suggests impaired LV relaxation. Right Ventricle The right ventricle is normal size. The right ventricular systolic function is normal. Atria The left atrium size is normal. The right atrium size is normal. Aortic Valve The aortic valve is normal in structure. No aortic regurgitation is present. There is no aortic valvular stenosis. Mitral Valve The mitral valve is normal in structure. There is no mitral valve regurgitation noted. No evidence of mitral valve stenosis. Tricuspid Valve The tricuspid valve is normal in structure. There is no tricuspid valve regurgitation noted. Pulmonic Valve The pulmonary valve is normal in structure. There is no pulmonic valvular regurgitation. Great Vessels The aortic root is normal in size. IVC is normal in size and collapses >50% with [place] [address] 2 D/M-MODE ECHOCARDIOGRAM Name: WILLTHELMA Room: [facility]#: [id number] Admission: 01/09/18 Attend Phys: JOHANA Robles Discharge: Date of : 60 Date of Service: 01/09/18 1601 Report #: [id number] There is no pericardial effusion. <Conclusion> The left ventricle is normal size. There is normal left ventricular wall thickness. Left ventricular systolic function is normal. LVEF is 55-60%. Transmitral Doppler flow pattern suggests impaired LV relaxation. IVC is normal in size and collapses >50% with inspiration. <ELECTRONICALLY SIGNED> By: Pravin Harper MD, FACC 01/09/181600 00 00 Pravin Harper MD, FACC /INF
== END ==
LOC: M.RAD 09:00
DX: Z12.31 Encounter for screening mammogram for malignant neoplasm of breast (principal); S32.010A Wedge compression fracture of first lumbar vertebra, initial encounter for closed fracture; M85.89 Other specified disorders of bone density and structure, multiple sites; R94.31 Abnormal electrocardiogram [ECG] [EKG]; Z78.0 Asymptomatic menopausal state; X58.XXXA Exposure to other specified factors, initial encounter; Y93.89 Activity, other specified; Y92.89 Other specified places as the place of occurrence of the external cause; Y99.8 Other external cause status

== ENCOUNTER 2018-04-09 13:11 | Inpatient (IN) | payer OTHER, MEDICAID ==
[~2018-04-09] VITALS: Ht 162.6 cm; Wt 94.8 kg
[2018-04-09 13:15] VITALS: BP 141/53
[2018-04-09 13:24] LABS: BE 9.4 mmol/L (-2 to +3); PO2 60.5 mmHg (75.0-100.0); pH 7.321 (7.340-7.450)
[2018-04-09 13:28] LABS: PCO2 76.4 mmHg (35.0-45.0)
[2018-04-09 13:31] LABS: ABSOLUTE BASOPHILS 0.2 thou/uL (0.0-0.2); ABSOLUTE EOSINOPHILS 0.2 thou/uL (0.0-0.7); ABSOLUTE LYMPHOCYTES 1.3 thou/uL (0.8-5.3); ABSOLUTE MONOCYTES 1.5 thou/uL (0.0-1.2); ABSOLUTE NEUTROPHILS 8.4 thou/uL (1.6-8.1); BASOPHILS 1.3 %; EOSINOPHILS 1.8 %; HEMATOCRIT 38.1 % (37.0-47.0); HEMOGLOBIN 12.9 gm/dL (12.0-15.0); MCH 32.1 pg (26.0-34.0); MCHC 33.9 g/dL (28.0-37.0); MCV 94.6 fL (80.0-100.0); MONOCYTES 13.1 %; MPV 8.4 fl. (7.2-11.1); NUCLEATED RBCS 0 /100WBC; PLATELET COUNT* 325 thou/uL (150-400); POLYS 72.8 %; RBC 4.03 mil/uL (4.20-5.00); RDW-CV 15.2 % (10.5-14.5); WBC 11.6 thou/uL (4.0-11.0)
[2018-04-09 13:40] LABS: ANION GAP 5 mmol/L (7-16); APTT 26.8 Seconds (25.0-31.3); BUN 13 mg/dL (7-18); CALCIUM 9.1 mg/dL (8.5-10.1); CHLORIDE 92 mmol/L (98-107); CO2 38 mmol/L (21-32); GLUCOSE 112 mg/dL (70-99); POTASSIUM 3.4 mmol/L (3.5-5.1); PROTIME 10.2 Seconds (9.20-11.50); SODIUM 135 mmol/L (136-145)
--- NOTE | 2018-04-09 13:40 | NUR ---
RT PRESENT TO PUT ON BIPAP
[2018-04-09 13:50] LABS: ALBUMIN 3.5 g/dL (3.4-5.0); ALKALINE PHOSPHATASE 96 U/L (46-116); LIPASE 74 U/L (73-393); NT-PRO BRAIN NAT PEPTIDE 20 pg/mL (<300); SGOT 15 U/L (15-37); SGPT 18 U/L (30-65); TOTAL BILIRUBIN 0.3 mg/dL (<0.1-1.0); TOTAL PROTEIN 7.3 g/dL (6.4-8.2); TROPONIN-I LEVEL <0.06 ng/mL (<0.06)
--- NOTE | 2018-04-09 15:01 | EKG ---
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: : 1960 Requested By: Jonh Beltre Order Number: [id number] MD: Brannon Valles Measurements Intervals [place] Rate: 111 P: 0 DE: 50 QRS: 74 QRSD: 99 T: 69 QT: 351 QTc: 477 Interpretive Statements Sinus tachycardia Borderline repolarization abnormality Artifact in lead(s) II,aVR,aVF,V1,V2,V3,V4,V5,V6 Compared to ECG 08/05/2017 23:33:22 Sinus rhythm no longer present Electronically Signed On 04-09-2018 15:01:38 TUBE LASER OPERATOR by Brannon Valles [email or web address] <ELECTRONICALLY SIGNED> By: Brannon Valles MD, [facility] 04/09/18 1501 1310 1310 Brannon Valles MD, [facility] /EPI
--- NOTE | 2018-04-09 16:35 | NUR ---
REPORT GIVEN TO HANNA LUTZ
[2018-04-09 17:02] VITALS: BP 134/49
[2018-04-09 17:30] VITALS: BP 127/60
--- NOTE | 2018-04-09 19:12 | NUR ---
PT ARRIVED ON UNIT AT APPROX 1730 WITH FAMILY AT BEDSIDE. A&O X4, LS DIMINISHED WITH WHEEZING PRESENT IN ALL LOBES, O2 SAT 88-89% ON 8LPM VIA NC SO PT COULD EAT, BIPAP AFTER AND CONT, PT IS NORMALLY ON 3LPM VIA NC AT HOME. BRIDAL SALES CONSULTANT TRACING SINUS RHYTHM, PT DENIES PAIN AT THIS TIME, UP WITH STANDBY ASSIST D/T BLE WEAKNESS. ORIENTED TO ROOM AND CALL LIGHT.
[2018-04-09 20:00] VITALS: BP 139/68
[2018-04-10 00:15] VITALS: BP 119/76
[2018-04-10 04:30] VITALS: BP 154/83
--- NOTE | 2018-04-10 05:25 | NUR ---
ASSUMED PT CARE AT 1930. NURSING ASSESSMENT COMPLETED AT START OF SHIFT. PT VOICED NO CONCERNS. ON BIPAP THROUGHOUT SHIFT. PT EASILY AROUSABLE WHEN ASLEEP. HEAD WAITER/WAITRESS IN PLACE, TRACING SINUS RHYTHM. HOURLY ROUNDING COMPLETED, AFEBRILE THIS SHIFT. CALL LIGHT WITHIN REACH.
[2018-04-10 05:54] LABS: HEMATOCRIT 37.4 % (37.0-47.0); HEMOGLOBIN 12.8 gm/dL (12.0-15.0); MCH 32.5 pg (26.0-34.0); MCHC 34.1 g/dL (28.0-37.0); MCV 95.3 fL (80.0-100.0); MPV 8.3 fl. (7.2-11.1); NUCLEATED RBCS 0 /100WBC; PLATELET COUNT* 319 thou/uL (150-400); RBC 3.93 mil/uL (4.20-5.00); RDW-CV 15.2 % (10.5-14.5); WBC 7.1 thou/uL (4.0-11.0)
[2018-04-10 06:18] LABS: CALCIUM 9.4 mg/dL (8.5-10.1); POTASSIUM 4.1 mmol/L (3.5-5.1)
[2018-04-10 07:12] LABS: ABSOLUTE LYMPHOCYTES 0.4 thou/uL (0.8-5.3); ABSOLUTE MONOCYTES 0.1 thou/uL (0.0-1.2); ABSOLUTE NEUTROPHILS 6.7 thou/uL (1.6-8.1); ANISOCYTOSIS 1+; PLATELET ESTIMATE ADEQUATE; POIKILOCYTOSIS 1+
[2018-04-10 08:00] VITALS: BP 148/80
--- NOTE | 2018-04-10 08:00 | NUR ---
ASSUMED PT CARE AT 0700, PT SITTING IN BED, CALL LIGHT IN REACH, FALL PRECAUTIONS IN PLACE, BIPAP ON, CLINICAL MASSAGE THERAPIST TRACING SINUS RHYTHM. PT DENIES ANY PAIN OR SOA, LS DIMINISHED IN ALL LOBES. PT SITTING UP ON SIDE OF BED FOR MEALS WITH NC ON, TOLERATING WELL. UP WITH STANDBY ASSIST, BEDSIDE COMMODE, CONT OF B&B. CONT POC
[2018-04-10 11:59] VITALS: BP 146/74
--- NOTE | 2018-04-10 15:23 | NUR ---
Pt having testing done in room, CM will attempt to assess later
[2018-04-10 15:59] VITALS: BP 147/65
--- NOTE | 2018-04-10 19:56 | NUR ---
PT LYING IN BED, CALL LIGHT IN REACH, FALL PRECAUTIONS IN PLACE. PT CURRENTLY ON BIPAP, TOLERATING WELL, LS REMAIN DIMINISHED. HOURLY ROUNDING COMPLETED, CERTIFIED NURSES AIDE CONT TO TRACE SINUS RHYTHM, VSS.
[2018-04-10 20:00] VITALS: BP 138/60
[2018-04-11] VITALS: BP 140/67
[2018-04-11 04:00] VITALS: BP 116/65
--- NOTE | 2018-04-11 04:41 | NUR ---
ASSUMED PT CARE AT 1930. NURSING ASSESSMENT COMPLETED AT START OF SHIFT. PT VOICED NO CONCERNS. SR ON POWDER WORKER TNT. PT ON BIPAP THROUGHOUT SHIFT, TOLERATED WELL. HOURLY ROUNDING COMPLETED. CALL LIGHT WITHIN REACH.
[2018-04-11 05:59] LABS: HEMATOCRIT 36.9 % (37.0-47.0); HEMOGLOBIN 12.3 gm/dL (12.0-15.0); MCH 31.7 pg (26.0-34.0); MCHC 33.2 g/dL (28.0-37.0); MCV 95.4 fL (80.0-100.0); MPV 8.2 fl. (7.2-11.1); NUCLEATED RBCS 0 /100WBC; PLATELET COUNT* 328 thou/uL (150-400); RBC 3.87 mil/uL (4.20-5.00); RDW-CV 14.9 % (10.5-14.5)
[2018-04-11 06:26] LABS: ALBUMIN 3.4 g/dL (3.4-5.0); CALCIUM 9.3 mg/dL (8.5-10.1); CREATININE 1.1 mg/dL (0.6-1.3); POTASSIUM 4.5 mmol/L (3.5-5.1); TOTAL BILIRUBIN 0.3 mg/dL (<0.1-1.0); TOTAL PROTEIN 7.3 g/dL (6.4-8.2)
[2018-04-11 07:00] LABS: ABSOLUTE LYMPHOCYTES 1.1 thou/uL (0.8-5.3); ABSOLUTE MONOCYTES 0.3 thou/uL (0.0-1.2); ABSOLUTE NEUTROPHILS 12.6 thou/uL (1.6-8.1); METAMYELOCYTES 1 %; PLATELET ESTIMATE ADEQUATE; TOXIC GRANULATION 2+
[2018-04-11 07:02] LABS: MACROCYTES 2+
[2018-04-11 07:03] LABS: HYPOCHROMASIA 1+
[2018-04-11 08:00] VITALS: BP 116/61
--- NOTE | 2018-04-11 09:46 | CON ---
[address] [address] CONSULTATION Name: THELMA SOLIS Room: [address] IN M.R.#: [id number] Admission: 04/09/18 Attend Phys: Armaan Elizalde MD Discharge: Date of : 60 Report #: [id number] THIS REPORT FOR: //name// CC: Armaan Munoz REASON FOR CONSULTATION: Respiratory failure. HISTORY OF PRESENT ILLNESS: This is a 58-year-old female patient with known history of COPD, chronic respiratory failure, on home oxygen at 2 liters and most likely she has severe disease. She told me she continues to smoke 2 packs per day. She presented to the Hospital ER and admitted with increasing shortness of breath, wheezes, cough and dyspnea and apparently, she was in distress and placed on BiPAP in the ER. During my visit, she was taken off BiPAP and she required 10 liter oxygen to maintain her O2 saturation 90-91%. She had been feeling rough for the last few days. She denied any sick contact, nasal discharge, obstruction or symptoms suggest respiratory virus illness. She had no fever, no chills, no nausea, no vomiting. She was hospitalized here at this facility more than once with COPD exacerbation. The last hospitalization was back in 07/2017 with hypercapnic respiratory failure. She sees a conference assistant at [facility]. We did not have access to her PFTs. Per the record, she has chronic steroids at home at 2.5 mg daily. She is on Symbicort, DuoNebs, on oxygen, but not on any noninvasive ventilation. Apparently per the record, she had a PET scan and a CT scan at [facility] that was unremarkable. She has history of rheumatoid arthritis. PAST MEDICAL HISTORY: Severe COPD, chronic respiratory failure on home oxygen, rheumatoid arthritis. PAST SURGICAL HISTORY: Cholecystectomy, hysterectomy, hyperlipidemia, and depression. SOCIAL HISTORY: She continues to smoke 2 packs per day, does not drink alcohol, does not abuse drugs per record. REVIEW OF SYSTEMS: Review of systems done with the patient. Pertinent positives as mentioned above. The rest of the 12-point review of system is negative. FAMILY HISTORY: Positive for COPD and coronary artery disease. HOME MEDICATIONS: She is on Flexeril, Celexa, Symbicort, DuoNeb, albuterol, lisinopril, hydrochlorothiazide, ibuprofen. ALLERGIES: GEMIFLOXACIN [place] [address] CONSULTATION Name: THELMA SOLIS Zane Room: [address]#: [id number] Admission: 04/09/18 Attend Phys: Armaan Elizalde MD Discharge: Date of : 60 Report #: [id number] PHYSICAL EXAMINATION: VITAL SIGNS: During my visit, she was on 10 liter oxygen, O2 saturation 91%, blood pressure of 154/83, breathing 16 times a minute, pulse rate of 76, temperature 36.2. GENERAL: Sitting in chair, starting to take her breakfast. HEAD: Normocephalic, atraumatic. EYES: Pupils are reactive to light. ORAL CAVITY: Moist mucous membrane. Mallampati of 2-3. External ears look normal. Nasal cavity patent passages. CHEST: Diminished air movement bilaterally with prolonged expiratory phase and wheezes heard posteriorly, inspiratory and expiratory wheeze. HEART: S1, S2.ss ABDOMEN: Obese, soft, lax, benign, nontender. Positive bowel sounds. EXTREMITIES: Lower extremity: No edema, no calf tenderness. PSYCHIATRIC: Mood and affect anxious. NEUROLOGIC: Moving 4 extremities spontaneously. No focal weakness. SKIN: Normal for age and race. LYMPHATICS: No palpable lymph node. LABORATORY DATA: Her ABGs upon presentation on 4 liters, 7.32/76/60. Her hemoglobin is 12.9 with white blood count 11.6, platelets 325. Her INR is 1 and her creatinine 1 with a potassium of 3.4, sodium 135. BNP not elevated. Her chest x-ray compared to previous chest x-ray showed chronic changes, no acute pathology. IMPRESSION: 1. Acute on chronic hypoxic and hypercapnic respiratory failure. 2. Chronic obstructive pulmonary disease exacerbation. 3. Active smoker. 4. Rheumatoid arthritis. PLAN: The patient with hypercapnic respiratory failure. Unfortunately, she continues to smoke, did not seem that she is willing to quit at this point. With hypercapnic respiratory failure, I would recommend to continue BiPAP p.r.n. and during sleep. She is currently requiring 10 liters of oxygen off BiPAP to keep her O2 saturation more than 90%. Wean oxygen as tolerated, steroids through the IV, antibiotics and scheduled nebulization treatments. She will be on Brovana and Pulmicort. We will continue to follow along with you. Thank you for the consult. <ELECTRONICALLY SIGNED> By: Manuel Mccall MD 04/11/18 0946 0940 [id number] Oneil MD /nt
--- NOTE | 2018-04-11 11:30 | NUR ---
ASSUMED CARE OF PATIENT THIS AM AT 0730. PATIENT IS ALERT AND ORIENTED X 4. SHE C/O BACK PAIN THIS AM. PATIENT MEDICATED FOR PAIN. PATIENT WAS ON O2 AT 10 LITERS THIS AM. PLACED BACK ON BIPAP AFTER BREAKFAST. O2 SATS >95%. NO FALLS OR INJURY.
[2018-04-11 11:38] VITALS: BP 136/61
--- NOTE | 2018-04-11 15:02 | NUR ---
Pt is A&O. Resides at home with her dtr. Independent with IADLs, family provides transportation. Pt has home o2 through [employer]. No hx of HH or SNF. Goal is home at nm. Following.
[2018-04-11 16:00] VITALS: BP 130/60
--- NOTE | 2018-04-11 16:55 | 2DMMODE ---
[place] [address] 2 D/M-MODE ECHOCARDIOGRAM Name: THELMA SOLIS Room: [address] IN [facility]#: [id number] Admission: 04/09/18 Attend Phys: Armaan Elizalde, Discharge: Date of : 60 Date of Service: 04/11/18 1655 Report #: [id number] THIS REPORT FOR: //name// APPROVED REPORT Study performed: 04/11/2018 13:55:53 EXAM: Comprehensive 2D, Doppler, and color-flow Echocardiogram Patient Location: In-Patient Room #: [facility] Status: routine BSA: 2.00 HR: 77 bpm BP: 136/61 mmHg Rhythm: NSR Other Information Study Quality: Adequate Technically limited study due to limited views available. Indications Congestive Heart Failure Dyspnea 2D Dimensions IVSd: 8.98 (7-11mm) LVOT Diam: 21.36 (18-24mm) LVDd: 46.57 mm PWd: 10.20 (7-11mm) LVDs: 28.50 (25-40mm) Aortic Root: 33.80 mm Aortic Valve AoV Peak Dk.: 1.59 m/s AO Peak Gr.: 10.10 mmHg LVOT Max P.46 mmHg AO Mean Gr.: 4.95 mmHg LVOT Mean P.09 mmHg LVOT Max V: 1.27 m/s AO V2 VTI: 28.36 cm LVOT Mean V: 0.81 m/s QUINTON (VTI): 2.92 cm2 LVOT V1 VTI: 23.07 cm Mitral Valve E/A Ratio: 1.10 MV Decel. Time: 221.70 ms MV E Max Dk.: 0.76 m/s MV PHT: 64.29 ms MVA (PHT): 3.42 cm2 [place] [address] 2 D/M-MODE ECHOCARDIOGRAM Name: THELMA SOLIS Room: [address] IN [facility]#: [id number] Admission: 04/09/18 Attend Phys: Armaan Elizalde, Discharge: Date of : 60 Date of Service: 04/11/18 1655 Report #: [id number] TDI E/Lateral E': 5.85 E/Medial E': 4.47 Medial E' Dk.: 0.17 m/s Lateral E' Dk.: 0.13 m/s Left Ventricle The left ventricle is normal size. There is normal LV segmental wall motion. There is normal left ventricular wall thickness. Left ventricular systolic function is normal. The left ventricular ejection fraction is within the normal range. LVEF is 60-65%. The left ventricular diastolic function is normal. Right Ventricle The right ventricle is normal size. The right ventricular systolic function is normal. Atria The left atrium size is normal. The right atrium size is normal. Aortic Valve The aortic valve is normal in structure. No aortic regurgitation is present. There is no aortic valvular stenosis. Mitral Valve The mitral valve is normal in structure. There is no mitral valve regurgitation noted. No evidence of mitral valve stenosis. Tricuspid Valve The tricuspid valve is normal in structure. There is no tricuspid valve regurgitation noted. Pulmonic Valve The pulmonary valve is normal in structure. There is no pulmonic valvular regurgitation. Great Vessels The aortic root is normal in size. IVC is normal in size and collapses >50% with inspiration. Pericardium There is no peric[place] [address] 2 D/M-MODE ECHOCARDIOGRAM Name: THELMA SOLIS Room: [address] IN M.R.#: [id number] Admission: 04/09/18 Attend Phys: Armaan Elizalde, Discharge: Date of : 60 Date of Service: 04/11/181654 Report #: [id number] <Conclusion> Left ventricular systolic function is normal. The left ventricular ejection fraction is within the normal range. <ELECTRONICALLY SIGNED> By: Brannon Valles MD, [facility] 04/11/181654 54 54 Brannon Valles MD, FACC /INF
[2018-04-11 20:00] VITALS: BP 136/74
[2018-04-12 00:04] VITALS: BP 133/69
[2018-04-12 04:00] VITALS: BP 122/51
--- NOTE | 2018-04-12 04:57 | NUR ---
PT ON 10L NC AND SATING IN THE MID 90S WITH NO SIGNS OF DISTRESS. BIPAP WORN FROM 10PM TO 4AM. PT THEN REQUESTED TO HAVE NC BACK ON. PT SLEPT OFF AND ON OVERNIGHT BUT HAD A HARD TIME GETTING COMFORTABLE WITH BIPAP ON. NO C/O PAIN. PROGRESSING TOWARDS MEETING GOALS.
[2018-04-12 08:05] VITALS: BP 137/71
[2018-04-12 11:33] LABS: ABSOLUTE LYMPHOCYTES 0.8 thou/uL (0.8-5.3); ABSOLUTE MONOCYTES 0.6 thou/uL (0.0-1.2); ABSOLUTE NEUTROPHILS 13.8 thou/uL (1.6-8.1); BASOPHILS 0.1 %; HEMATOCRIT 35.2 % (37.0-47.0); HEMOGLOBIN 11.8 gm/dL (12.0-15.0); LYMPHOCYTES 5.3 %; MCHC 33.4 g/dL (28.0-37.0); MCV 95.7 fL (80.0-100.0); MONOCYTES 3.9 %; MPV 8.3 fl. (7.2-11.1); NUCLEATED RBCS 0 /100WBC; PLATELET COUNT* 322 thou/uL (150-400); POLYS 90.7 %; RBC 3.68 mil/uL (4.20-5.00); RDW-CV 14.9 % (10.5-14.5); WBC 15.2 thou/uL (4.0-11.0)
[2018-04-12 11:46] LABS: ALBUMIN 3.2 g/dL (3.4-5.0); CALCIUM 8.8 mg/dL (8.5-10.1); CREATININE 0.8 mg/dL (0.6-1.3); POTASSIUM 4.2 mmol/L (3.5-5.1); TOTAL BILIRUBIN 0.2 mg/dL (<0.1-1.0); TOTAL PROTEIN 6.7 g/dL (6.4-8.2)
--- NOTE | 2018-04-12 11:57 | CON ---
[address] [address] CONSULTATION Name: THELMA SOLIS Room: [address] IN M.R.#: [id number] Admission: 04/09/18 Attend Phys: Armaan Elizalde MD Discharge: Date of : 60 Report #: [id number] THIS REPORT FOR: //name// CC: Armaan Juan [place] DATE OF SERVICE: 04/11/2018 INFECTIOUS DISEASE CONSULTATION ATTENDING PHYSICIAN: Armaan Elizalde M.D. REASON FOR EVALUATION: Followup evaluation for positive blood cultures with gram-positive cocci. HISTORY OF PRESENT ILLNESS: Chart reviewed, the patient examined. This is a 58-year-old female with extensive medical history given her age. She has underlying severe COPD, essentially oxygen requiring at 3 liters, who was admitted with progressive dyspnea and also productive cough. She noted she had been sick for about 3 days prior to her admission. She felt has been ill, but it was likely she was sick prior to his developing signs and symptoms. Due to her immunocompromised state, she was admitted. Evaluation suggested possible pneumonitis. Lactic acid was 0.9. CRP was not markedly elevated, 15.3. As far as the initial evaluation, blood cultures were collected, now 1 out of 2 positive with gram-positive cocci. She denies significant gastrointestinal-related complaints. She states her weight is stable. She occasionally has fluid retention. She denies fevers or chills. She was empirically placed on antimicrobials with ceftriaxone as well as vancomycin. ALLERGIES: QUINOLONES. CURRENT MEDICATIONS: Include vancomycin, cyclobenzaprine, budesonide, arformoterol, albuterol, furosemide, citalopram, ceftriaxone, pantoprazole, methylprednisolone, guaifenesin, enoxaparin, nicotine, montelukast, p.r.n. analgesics and antiemetics. PAST MEDICAL HISTORY: Above noted O2-requiring severe COPD, history of depression, previous cholecystectomy and partial hysterectomy. SOCIAL HISTORY: She smokes 2 packs a day for the last 40 years. No illicit drug use. No ethanol use. FAMILY HISTORY: Noncontributory. REVIEW OF SYSTEMS: A 10-point review of system otherwise unremarkable, with the exception of noted in [place] [address] CONSULTATION Name: THELMA SOLIS Zane Room: [address]#: [id number] Admission: 04/09/18 Attend Phys: Armaan Elizalde MD Discharge: Date of : 60 Report #: [id number] PHYSICAL EXAMINATION: GENERAL: She appears chronically ill, in moderate distress. She is wearing a BiPAP. She appears undernourished. VITAL SIGNS: Temperature 98, pulse 88, respirations 15 and blood pressure 136/61. SKIN: Warm and has changes consistent with chronic corticosteroid use, multiple areas of contusion and thinning of the skin. HEENT: Normocephalic. NECK: Supple. LUNGS: Diminished overall with scattered coarse breath sounds bilaterally. HEART: Regular. I do not appreciate a murmur. ABDOMEN: Distended, soft and nontender. EXTREMITIES: No cyanosis. GENITOURINARY: Deferred. RECTAL: Deferred. LABORATORY DATA: Initial ABG, pH of 7.321, pCO2 of 76.4 with a pO2 of 60.5 on 4 liters. CBC, initially, white count 11.6, H and H 12.9 and 38.1 and platelets of 325,000. Chest x-ray showed abnormal density in the left base; it is really stable, dating back to 2013; chronic scarring and severe emphysematous changes. Lactic acid is 0.9. Electrolytes: Sodium 135, potassium 3.4, chloride 92, bicarbonate is 38 and BUN and creatinine 13 and 1.0. LFTs unremarkable. Albumin was 3.5. CRP of 15.3. Blood cultures 1 out of 2 with gram-positive cocci. ASSESSMENT AND PLAN: Severe chronic obstructive pulmonary disease, complicated by respiratory failure with hypercarbia. It is certainly difficult to exclude a primary pneumonitis, certainly lower respiratory tract infection. In addition, she has a positive blood culture. I think the way the evidence probably favors against a true positive, although it could be a pneumococcus. We will continue combination therapy including ceftriaxone as well as vancomycin. Awaiting further results. She, at this point, is quite tenuous. We will have to monitor expectantly, at risk for additional complications including nosocomial infections. <ELECTRONICALLY SIGNED> By: Gino Fair MD 04/12/18 1157 1643 [id number] Fair MD /nt
[2018-04-12 12:18] VITALS: BP 130/50
[2018-04-12 15:37] VITALS: BP 146/74
--- NOTE | 2018-04-12 18:50 | NUR ---
PT TOLERATING BEING ON BIPAP OR 10L PER NC THIS SHIFT TO MAINTAIN SATS GREATER THAN 90%. PT RUNNING SR ON THE MONITOR AND SKIN IS DRY. PT GOT NEW IV IN THE LFA THIS SHIFT DUE TO PAIN IN L HAND THAT WAS D/C THIS SHIFT. PT TOLERATING DIET WITH C/O PAIN THIS EVENING AND PAIN MEDS WERE GIVEN.
[2018-04-12 19:40] VITALS: BP 144/66
[2018-04-13] VITALS: BP 133/74
[2018-04-13 04:00] VITALS: BP 148/66
--- NOTE | 2018-04-13 04:26 | NUR ---
RECIEVED REPORT AND ASSUMED CARE AT 1900. CONTRIBUTION SOLICITOR IN PLACE. VITAL SIGNS STABLE. PT UP STANDBY TO COMMODE. PT HAS HEADACHE 3/, NO MEDS GIVEN AT THIS TIME DUE TO PTS CHOICE. QUIET ENVIRONMENT HELPED MANAGE PAIN. ASSESSMENT COMPLETED, DISCUSSED PLAN OF CARE, PT UNDERSTANDS. BED LOCKED AND CALL LIGHT WITHIN REACH. FALL PRECAUTIONS IN PLACE. HOURLY ROUNDING DONE AND ALL NEEDS MET. NURSING WILL CONTINUE TO MONITOR.
[2018-04-13 04:46] LABS: ABSOLUTE MONOCYTES 0.7 thou/uL (0.0-1.2); ABSOLUTE NEUTROPHILS 12.4 thou/uL (1.6-8.1); HEMATOCRIT 35.9 % (37.0-47.0); HEMOGLOBIN 11.9 gm/dL (12.0-15.0); LYMPHOCYTES 7.1 %; MCH 31.8 pg (26.0-34.0); MCHC 33.2 g/dL (28.0-37.0); MCV 95.9 fL (80.0-100.0); MPV 7.9 fl. (7.2-11.1); NUCLEATED RBCS 0 /100WBC; PLATELET COUNT* 307 thou/uL (150-400); POLYS 87.9 %; RBC 3.74 mil/uL (4.20-5.00); RDW-CV 14.7 % (10.5-14.5); WBC 14.1 thou/uL (4.0-11.0)
[2018-04-13 05:08] LABS: ALBUMIN 3.2 g/dL (3.4-5.0); ALKALINE PHOSPHATASE 63 U/L (46-116); ANION GAP < 0 mmol/L (7-16); BUN 25 mg/dL (7-18); CALCIUM 8.7 mg/dL (8.5-10.1); CHLORIDE 99 mmol/L (98-107); CO2 40 mmol/L (21-32); CREATININE 0.8 mg/dL (0.6-1.3); GLUCOSE 146 mg/dL (70-99); POTASSIUM 4.5 mmol/L (3.5-5.1); SGOT 13 U/L (15-37); SGPT 39 U/L (30-65); SODIUM 138 mmol/L (136-145); TOTAL BILIRUBIN 0.2 mg/dL (<0.1-1.0); TOTAL PROTEIN 6.6 g/dL (6.4-8.2)
[2018-04-13 08:00] VITALS: BP 147/72
--- NOTE | 2018-04-13 10:11 | NUR ---
CM spoke with pulm, pulm requested that CM initiate a trilogy referral. Updated Sakina at [facility] faxed referral.
[2018-04-13 12:07] VITALS: BP 137/58
[2018-04-13 14:00] VITALS: BP 137/73
--- NOTE | 2018-04-13 17:04 | NUR ---
PT SITTING ON SIDE OF BED MOST OF SHIFT. O2 TITRATED DOWN TO 4L NC. PT REPORTS SOA WITH EXERTION. UP TO BSC WITH STEADY GAIT. IV ABX INFUSING
[2018-04-13 19:05] VITALS: BP 118/70
--- NOTE | 2018-04-13 22:10 | NUR ---
ASSESSMENT COMPLETE. REFER TO CHARTING. TRACING SR-ST ON MONITOR. PT DOES HAVE INCREASED ANXIETY AT TIMES. VSS. HOURLY ROUNDING FOR SAFETY. CLWR.
[2018-04-14 00:04] VITALS: BP 144/85
[2018-04-14 04:00] VITALS: BP 147/69
[2018-04-14 05:54] LABS: HEMATOCRIT 34.5 % (37.0-47.0); HEMOGLOBIN 11.5 gm/dL (12.0-15.0); MCHC 33.3 g/dL (28.0-37.0); MCV 96.2 fL (80.0-100.0); MPV 8.5 fl. (7.2-11.1); NUCLEATED RBCS 0 /100WBC; PLATELET COUNT* 269 thou/uL (150-400); RBC 3.59 mil/uL (4.20-5.00); RDW-CV 15.1 % (10.5-14.5); WBC 12.1 thou/uL (4.0-11.0)
[2018-04-14 06:19] LABS: ANION GAP < 0 mmol/L (7-16); BUN 21 mg/dL (7-18); CALCIUM 8.5 mg/dL (8.5-10.1); CHLORIDE 99 mmol/L (98-107); CO2 41 mmol/L (21-32); CREATININE 0.8 mg/dL (0.6-1.3); GLUCOSE 153 mg/dL (70-99); POTASSIUM 4.5 mmol/L (3.5-5.1); SODIUM 139 mmol/L (136-145)
[2018-04-14 06:59] LABS: ABSOLUTE LYMPHOCYTES 1.3 thou/uL (0.8-5.3); ABSOLUTE MONOCYTES 0.7 thou/uL (0.0-1.2); METAMYELOCYTES 1 %; MYELOCYTES 1 %
[2018-04-14 07:00] LABS: PLATELET ESTIMATE ADEQUATE
[2018-04-14 07:01] LABS: MICROCYTES 1+
[2018-04-14 08:36] VITALS: BP 106/61
[2018-04-14 12:00] VITALS: BP 143/71
[2018-04-14 16:00] VITALS: BP 146/69
--- NOTE | 2018-04-14 17:54 | NUR ---
pt sitting on side of bed for most of day, using trilogy when napping. pt becomes soa on exertion. 5l o2 nc, sat mid 90's. pt reports smoking 2 ppd at home. nonproductive cough. pt able to make needs known, call light in reach
[2018-04-14 20:00] VITALS: BP 147/80
[2018-04-15] VITALS: BP 136/66
[2018-04-15 04:00] VITALS: BP 143/64
--- NOTE | 2018-04-15 05:58 | NUR ---
ASSUMED PATEINT CARE AT 1900. PATIENT ALERT AND ORIENTED TIMES FOUR. COMPLIANT WITH CARES AT THIS TIME. ON O2 AT 5L VIA NC. WEARS TRILOGY AT HS.CAN BE RUDE TO STAFF AT TIMES. MINOR COMPLAINTS OF PAIN NOTED. ORAL PAIN MEDICATION GIVEN. IV PATENT. CHEMICAL DETECTION EXPERT AND HOURLY ROUNDING COMPLETED DOCUMENTED.
[2018-04-15 08:08] VITALS: BP 145/68
[2018-04-15] MEDS ORDERED: PREDNISONE 10 M10 MG PO (08:40)
[2018-04-15 11:20] VITALS: BP 155/68
--- NOTE | 2018-04-15 11:22 | NUR ---
PT TRANSFERRED TO UNIT. PT IS ALERT AND ORIENTED. I AGREE WITH MORNING ASSESSMENTS. VITALS OBTAINED. PT HAD QUESTIONS REGARDING TAKING LISINOPRIL/HYDROCHLOROTHIAZIDE. WILL NOTIFY DOCTOR REGARDING PT CONCERN WITH MEDS. PT ON 4 LITERS O2 BY NASAL CANNULLA WITH HUMIDIFIER. FALL RISK PRECAUTIONS IN PLACE. WILL CONTINUE TO MONITOR.
[2018-04-15 16:00] VITALS: BP 156/78
--- NOTE | 2018-04-15 18:08 | NUR ---
PT REMAINED ALERT AND ORIENTED. PT IS ON 4 LITER SO2 BY NASAL CANNULA. PT WAS SOBBING EARLIER TODAY DUE TO COMMENT MADE TO HER EARLIER IN THE SHIFT. SHOE PLANNER NOTIFIED OF PT FEELINGS. PT UP AD INDRA TO COMMODE AND BATHROOM. OXYGEN EXTENSION GIVEN. PT IV LEAKS SMALL AMOUNTS OF FLUID WHEN RUNNING TOO FAST, PT DOES NOT WANT A NEW IV AND WANTS TO KEEP THIS IV. FALL RISK PRECAUTIONS IN PLACE. HOURLY ROUNDING COMPLETED. WILL CONTINUE TO MONITOR.
[2018-04-15 20:11] VITALS: BP 138/66
--- NOTE | 2018-04-16 06:49 | NUR ---
Pt reports she rested well overnight. VSS. On Trilogy from approximately 2200 until around 0300. Medicated twice for c/o chronic back pain, reports adequate relief with ordered pain medication. Breath snds wheezy throughout. Otherwise no complaints. Will continue to monitor.
[2018-04-16 08:50] VITALS: BP 127/43
[2018-04-16 12:28] VITALS: BP 127/43
[2018-04-16] MEDS ORDERED: AZITHROMYCIN 2250 MG PO (12:47)
[2018-04-16] MEDS ORDERED: CEFDINIR300 MG PO (12:48)
[2018-04-16 14:04] VITALS: BP 127/43
--- NOTE | 2018-04-16 14:07 | NUR ---
PATIENT IS ALERT AND ORIENTED TODAY, PLEASANT. UP AD INDRA IN ROOM WITH OXYGEN TUBING EXTENSION. VITAL SIGNS STABLE ON 5 LITERS OF OXYGEN, USES TRILOGY AT NIGHT. PATIENT IS BEING DISCHARGED TO HOME. DISCHARGE INSTRUCTIONS AND PRESCRITPIONS GIVEN, QUESTIONS ANSWERED FOR PATIENT AND FAMILY. LEFT VIA WHEELCHAIR WITH HOME OXYGEN TAMK TO WITH CHILD. VOLUNTEER WHEELED PATIENT OUT.
== END 2018-04-16 14:16 | disposition home or self-care (01) | DRG 193 ==
LOC: M.ERS 13:11 → M.2W 14:05 → M.TBA-ER 14:05 → M.2W 17:18 → M.3W 04-15 11:08
PROVIDERS: Family Medicine; ADMIT Internal Medicine
PROC: 5A09357 Assistance with Respiratory Ventilation, Less than 24 Consecutive Hours, Continuous Positive Airway Pressure (ICD-10-PCS; principal; 2018-04-09)
PROC: 5A09357 Assistance with Respiratory Ventilation, Less than 24 Consecutive Hours, Continuous Positive Airway Pressure (ICD-10-PCS; 2018-04-10)
PROC: 5A09357 Assistance with Respiratory Ventilation, Less than 24 Consecutive Hours, Continuous Positive Airway Pressure (ICD-10-PCS; 2018-04-11)
PROC: 5A09357 Assistance with Respiratory Ventilation, Less than 24 Consecutive Hours, Continuous Positive Airway Pressure (ICD-10-PCS; 2018-04-12)
DX: J18.9 Pneumonia, unspecified organism (principal); J96.21 Acute and chronic respiratory failure with hypoxia; J96.22 Acute and chronic respiratory failure with hypercapnia; R65.11 Systemic inflammatory response syndrome (SIRS) of non-infectious origin with acute organ dysfunction; E87.2 Acidosis; J44.0 Chronic obstructive pulmonary disease with (acute) lower respiratory infection; F17.210 Nicotine dependence, cigarettes, uncomplicated; E78.5 Hyperlipidemia, unspecified; M06.9 Rheumatoid arthritis, unspecified; B96.89 Other specified bacterial agents as the cause of diseases classified elsewhere; J20.9 Acute bronchitis, unspecified; Z23 Encounter for immunization; Z90.49 Acquired absence of other specified parts of digestive tract; Z90.710 Acquired absence of both cervix and uterus; Z79.51 Long term (current) use of inhaled steroids; Z79.899 Other long term (current) drug therapy; Z88.1 Allergy status to other antibiotic agents; Z71.6 Tobacco abuse counseling

== ENCOUNTER 2018-05-28 04:18 | Inpatient (IN) | payer OTHER, MEDICAID ==
[2018-05-28] VITALS (8 sets, daily range): BP systolic 102–147; BP diastolic 64–75
[~2018-05-28] VITALS: Ht 162.6 cm; Wt 104.3 kg
[~2018-05-28 04:18] MED LIST changes: +AZITHROMYCIN 2250 MG PO; +CEFDINIR300 MG PO
[2018-05-28 04:58] LABS: ABSOLUTE BASOPHILS 0.1 thou/uL (0.0-0.2); ABSOLUTE LYMPHOCYTES 1.6 thou/uL (0.8-5.3); ABSOLUTE MONOCYTES 1.2 thou/uL (0.0-1.2); ABSOLUTE NEUTROPHILS 11.7 thou/uL (1.6-8.1); BASOPHILS 0.4 %; EOSINOPHILS 0.1 %; HEMATOCRIT 38.4 % (37.0-47.0); HEMOGLOBIN 12.7 gm/dL (12.0-15.0); LYMPHOCYTES 10.8 %; MCH 30.5 pg (26.0-34.0); MCV 92.5 fL (80.0-100.0); MONOCYTES 8.1 %; MPV 8.5 fl. (7.2-11.1); NUCLEATED RBCS 0 /100WBC; PLATELET COUNT* 404 thou/uL (150-400); POLYS 80.6 %; RBC 4.16 mil/uL (4.20-5.00); RDW-CV 14.8 % (10.5-14.5); WBC 14.6 thou/uL (4.0-11.0)
[2018-05-28 05:16] LABS: ANION GAP 6 mmol/L (7-16); BUN 16 mg/dL (7-18); CALCIUM 9.6 mg/dL (8.5-10.1); CHLORIDE 97 mmol/L (98-107); CO2 35 mmol/L (21-32); CREATININE 0.8 mg/dL (0.6-1.3); GLUCOSE 128 mg/dL (70-99); POTASSIUM 3.9 mmol/L (3.5-5.1); SODIUM 138 mmol/L (136-145); TROPONIN-I LEVEL <0.06 ng/mL (<0.06)
[2018-05-28 05:17] LABS: ALBUMIN 3.6 g/dL (3.4-5.0); ALKALINE PHOSPHATASE 77 U/L (46-116); LIPASE 76 U/L (73-393); MAGNESIUM 2.2 mg/dL (1.8-2.4); NT-PRO BRAIN NAT PEPTIDE 58 pg/mL (<300); SGOT 10 U/L (15-37); SGPT 13 U/L (30-65); TOTAL BILIRUBIN 0.2 mg/dL (<0.1-1.0); TOTAL PROTEIN 7.3 g/dL (6.4-8.2)
[2018-05-28 12:33] LABS: BE 5.8 mmol/L (-2 to +3); PO2 75.1 mmHg (75.0-100.0)
[2018-05-28 12:35] LABS: PCO2 86.4 mmHg (35.0-45.0)
[2018-05-28 12:36] LABS: pH 7.242 (7.340-7.450)
--- NOTE | 2018-05-28 12:42 | NUR ---
CRITICAL ABG RESULTS DISCUSSED WITH PT BY DR BARBOSA AND PT IS REFUSING TO BE INTUBATED AT THIS TIME.
[2018-05-28 14:01] LABS: BE 6.3 mmol/L (-2 to +3); PO2 88.4 mmHg (75.0-100.0); pH 7.318 (7.340-7.450)
[2018-05-28 14:04] LABS: PCO2 69.3 mmHg (35.0-45.0)
--- NOTE | 2018-05-28 17:01 | NUR ---
PATIENT ADMITTED FROM ER ON BIPAP INTERVIEWED. DAUGHTER AND PATIENT. PATIENT IS FULL CODE WITH UNDERSTANDING SHE WILL NOT BE INTUBATED TILL SHE IS UNRESPONSIVE. PT HAS TRILOGY AT HOME. CO IT NOT HELPINHG AND NO RESOURCE TO ADDRESS PROBLEM. PT IS COMFORTABLE AT THIS TIME, REMAINS ON BIPAP DRNIES DISCOMFORT.
--- NOTE | 2018-05-28 17:43 | EKG ---
[place] [address] ELECTROCARDIOGRAM REPORT Name: THELMA SOLIS Room: [address] ADM IN M.R.#: [id number] Admission: 05/28/18 Attend Phys: Agustín Griffin MD Discharge: Date of : 60 Report #: [id number] THIS REPORT FOR: //name// [facility] ED Test Date: 2018-05-28 Test Time: 04:42:49 Pat Name: THELMA SOLIS Department: Room: [facility] Gender: F Tent Finisher: Braulio RAM : 1960 Requested By: Dakota Al Order Number: [id number] MD: Pravin Harper Measurements Intervals Union Rate: 85 P: NE: QRS: 60 QRSD: 96 T: 60 QT: 352 QTc: 419 Interpretive Statements Normal sinus rhythm Low-voltage QRS diffusely Borderline T abnormalities, anterior leads Compared to ECG 04/09/2018 13:10:16 T-wave abnormality now present Sinus tachycardia no longer present Electronically Signed On 05-28-2018 17:43:38 CDT by Pravin Harper [email or web address] <ELECTRONICALLY SIGNED> By: Pravin Harper MD, FACC 05/28/18 1743 [id number] Pravin Harper MD, [facility] /EPI
[2018-05-29] VITALS (12 sets, daily range): BP systolic 108–143; BP diastolic 42–76
[2018-05-29 03:17] LABS: MCH 31.1 pg (26.0-34.0); MCHC 33.2 g/dL (28.0-37.0); MCV 93.8 fL (80.0-100.0); MPV 8.4 fl. (7.2-11.1); RBC 3.84 mil/uL (4.20-5.00); RDW-CV 14.8 % (10.5-14.5); WBC 12.1 thou/uL (4.0-11.0)
[2018-05-29 03:31] LABS: ALBUMIN 3.2 g/dL (3.4-5.0); CALCIUM 8.5 mg/dL (8.5-10.1); CREATININE 0.7 mg/dL (0.6-1.3); MAGNESIUM 2.4 mg/dL (1.8-2.4); POTASSIUM 4.3 mmol/L (3.5-5.1); TOTAL BILIRUBIN 0.2 mg/dL (<0.1-1.0); TOTAL PROTEIN 6.6 g/dL (6.4-8.2)
--- NOTE | 2018-05-29 08:00 | CON ---
[address] [address] CONSULTATION Name: THELMA SOLIS Room: [address] IN M.R.#: [id number] Admission: 05/28/18 Attend Phys: Agustín Griffin MD Discharge: Date of : 60 Report #: [id number] THIS REPORT FOR: //name// CC: FAM physician/PCP Agustín Griffin DATE OF SERVICE: 05/28/2018 REFERRING PHYSICIAN: Bernabe Brooks M.D. CHIEF COMPLAINT: Acute respiratory insufficiency. HISTORY OF PRESENT ILLNESS: The patient is a 58-year-old female who continues to smoke. She presented to the Emergency Room as a result of increasing shortness of breath. Daughter is present, provides some component of input regarding her mother's care. Daughter appears somewhat intense and angry because of the fact that her mother is not improving. It appears the patient had been hospitalized at [facility] in [place] on 04/09/2018 and discharged on 04/16/2018. Her discharge diagnosis was an exacerbation of her COPD. According to the daughter, the patient did well for the first 2 weeks and after that she deteriorated. She states that the patient's O2 saturation despite utilization of oxygen therapy and Trilogy at home, the patient's saturations were dropping below 80%. I could not get a really good straight answer from the daughter whether the patient was attended to by her primary healthcare provider, which is a nurse practitioner. Daughter implies that the nurse practitioner was not privy to information that occurred during that hospitalization. Reviewing the discharge summary, it appears that the patient had acute bronchitis with pneumonitis, gram-positive bacteria in her blood, but it was a false positive or a contaminant. She was in with an exacerbation of her COPD, active smoker. The patient obviously was advised to discontinue cigarette consumption, but obviously that did not take place. The patient presented to this hospital hypercapnic. Intubation was considered, but the patient did not want that at this time. As a result, she was placed on a CPAP with AVAPS delivery and her arterial blood gases did improve. Her respiratory failure seemed to have slightly corrected with an improvement in the pH and a decrease in the pCO2. PAST MEDICAL HISTORY: Significant for severe COPD, tobacco abuse, chronic respiratory failure, chronic hypercapnia. The patient also has chronic [place] [address] CONSULTATION Name: WILLTHELMA L Room: [address]#: [id number] Admission: 05/28/18 Attend Phys: Agustín Griffin MD Discharge: Date of : 60 Report #: [id number] ALLERGIES: SHE IS ALLERGIC TO CEPHALOSPORINS. FAMILY HISTORY: Not pertinent for the patient at this time. REVIEW OF SYSTEMS: A 12-point system review negative other than what is outlined above. The patient did deny headache, numbness, tingling, blurred vision, nausea or vomiting. She has not had any chest pain or abdominal pain. Denies diarrhea, constipation, hematuria, calf pain or swelling. The patient did complain and admit to having chronic back pain. MEDICATIONS: Consist of lisinopril, vancomycin, arformoterol, budesonide, Solu-Medrol, Zosyn, Protonix. SCDs will be placed as well. PHYSICAL EXAMINATION: VITAL SIGNS: Blood pressure 158/78, respiratory rate 21, pulse rate 92, temperature 98.1 degree. The patient's weight is 210 pounds. Her O2 saturation 95%. GENERAL: The patient is on a BiPAP device with AVAPS. See the Respiratory Therapy settings. HEENT: Head is atraumatic. Eyes: Pupils are round, equal, reactive. Oral cavity is moist. The patient is able to stick out her tongue. Her mucous membranes are moist. No lesions. Nose: Nasal passage is patent. NECK: Without adenopathy. CHEST: Reveals a few scattered end expiratory wheezes, markedly diminished breath sounds. Poor symmetrical expansion, although it is symmetrical. CARDIOVASCULAR: Does reveal a sinus rhythm with a rate of about 70. ABDOMEN: Soft, no organomegaly or tenderness. EXTREMITIES: Negative for edema. No evidence of clubbing. SKIN: Warm and dry. No rash. LYMPHATICS: Negative. Pulses equal bilaterally. NEUROLOGIC: The patient is responsive, cooperative. She is appropriate. She is able to move all 4 extremities without difficulty and on command. LABORATORY DATA: Her initial blood gas in the Emergency Room revealed a pH 7.24, pCO2 of 86, pO2 of 75, bicarbonate of 36. This is on 40% BiPAP at 16/8. Some changes were made, the patient was placed on AVAPS, set tidal volume 550, rate 20, 45% FiO2, pH 7.32, pCO2 of 69, pO2 of 88 with a bicarbonate of 34. Hemoglobin and hematocrit are 12.7 and 38, white count 14,600. Sodium 138, potassium 3.9, chloride 97, CO2 of 35, BUN 16, creatinine 0.8, EGFR 74. Troponin less than 0.06. ProBNP of 58. MEDICAL IMAGING STUDIES: Chest x-ray shows hyperinflation, increased bronchovesicular markings. She does have what looks like a pleural effusion in the left lower lung field with some left basilar atelectasis. Increased haziness in the right lower lung field. [address] [address] CONSULTATION Name: WILLTHELMA Room: [address] ADM IN M.R.#: [id number] Admission: 05/28/18 Attend Phys: Agustín Griffin MD Discharge: Date of : 60 Report #: [id number] Compared to the prior study on 04/15/2018, findings appear worse with increased infiltrates and effusions, specifically in the right lower and left lower lung carvalho. IMPRESSION: 1. Acute respiratory insufficiency/failure. 2. Pneumonia. 3. Acute exacerbation of her chronic obstructive pulmonary disease. 4. Chronic back pain. 5. Tobacco abuse. RECOMMENDATION: Follow up chest x-ray, ABGs in the a.m. Discussion with the patient and the daughter, the patient is willing to undergo intubation in the event that it is necessary. This obviously would be in the setting of a deteriorated state such as increased somnolence, increasing pCO2. Medications as outlined above will be continued for now. Steroids will be increased. Brovana will be added to her current bronchodilator therapy and her albuterol/ipratropium treatments will be increased to q.4 hour basis. Aspiration precautions will be initiated as well. Approximately 35 minutes spent in critical care time. <ELECTRONICALLY SIGNED> By: Alejandro Hardy MD 05/29/18 0800 [id number] Mccall MD /davis
--- NOTE | 2018-05-29 12:36 | CON ---
[address] [address] CONSULTATION Name: THELMA SOLIS Room: [address] IN M.R.#: [id number] Admission: 05/28/18 Attend Phys: Agustín Griffin MD Discharge: Date of : 60 Report #: [id number] THIS REPORT FOR: //name// CC: TOYA physician/PCP Agustín Griffin DATE OF SERVICE: 05/29/2018 INFECTIOUS DISEASE CONSULTATION ATTENDING PHYSICIAN: Agustín Griffin M.D. REASON FOR EVALUATION: Pneumonitis, complicated by respiratory failure. HISTORY OF PRESENT ILLNESS: Chart reviewed, patient examined. This 58-year-old known to myself, has been hospitalized within the last 60 days, has known severe underlying COPD, O2 requiring 3 liters, who presented to the emergency room with complaining of progressive dyspnea. She was found to have difficulty speaking sentences due to the shortness of breath, was found to have marginal saturations. Evaluation suggested bilateral patchy infiltrates. Due to her immunocompromised state as well as she has rheumatoid arthritis, is on corticosteroids long-term, she was placed in the Intensive Care Unit, did not require intubation at this point, but is on BiPAP overnight. She is quite restless. It is difficult to ascertain her degree of encephalopathy at this point. Hemodynamically, she has been relatively stable. She has been afebrile. She was started empirically on antimicrobial therapy with piperacillin, tazobactam, vancomycin. Blood cultures are in progress. ALLERGIES: LISTED TO QUINOLONES. CURRENT MEDICATIONS: Include nicotine patch, cholecalciferol, lisinopril, vancomycin, arformoterol, enoxaparin, budesonide, Zosyn, methylprednisolone 62.5 IV q. 6, montelukast, hydrocodone, ipratropium, albuterol inhaler, p.r.n. fentanyl, pantoprazole. PAST MEDICAL HISTORY: As described above. O2 requiring COPD, rheumatoid arthritis with a long-term corticosteroid use, compression fracture of lumbar spine, cholecystectomy, partial hysterectomy, history of depression. SOCIAL HISTORY: Smokes a pack per day currently. No ethanol or illicit drug use. FAMILY HISTORY: Noncontributory. REVIEW OF SYSTEMS: Primarily focuses on back pain, I think related to the compression fracture. She is encephalopathic [place] [address] CONSULTATION Name: THELMA SOLIS Room: [address]#: [id number] Admission: 05/28/18 Attend Phys: Agustín Griffin MD Discharge: Date of : 60 Report #: [id number] 10-point review of systems. PHYSICAL EXAMINATION: GENERAL: She appears chronically ill, undernourished. VITAL SIGNS: Temperature 98.3, pulse 81, respirations 17, blood pressure 131/54. SKIN: Warm. HEENT: Normocephalic. Extraocular muscles intact. She does have the BiPAP in place. NECK: Appears to be supple. LUNGS: Diminished, overall scattered coarse breath sounds. HEART: Regular. I believe she got a soft systolic murmur. ABDOMEN: Soft, mildly distended. There are no overt peritoneal signs. EXTREMITIES: Distal lower extremities have trace edema. GENITOURINARY AND RECTAL: Deferred. LABORATORY DATA: Most recent chest x-ray from this morning shows improvement in the patchy infiltrates. Electrolytes: Sodium 137, potassium 4.3, chloride 103, bicarbonate 33, anion gap of 1, BUN and creatinine 21 and 0.7, glucose of 143. LFTs unremarkable. Albumin of 3.2, total protein of 6.6, estimated GFR of 86. CBC: White count 12.1, H and H 12.0 and 36.0, platelets of 356. ABG from yesterday on BiPAP, pH 7.318, pCO2 of 69.3, pO2 of 88.4 on FiO2 of 45%. Lactic acid 1.2. ASSESSMENT: Pneumonitis, complicated by respiratory failure. Certainly, the patient's history of severe chronic obstructive pulmonary disease is very little reserve. I think I continue empiric antimicrobial therapy, although she is at risk for some opportunistic type infections. We will check a pneumococcal legionella antigen. Obtain sputum as is able. Continue efforts to wean off support including the BiPAP. She remained certainly very tenuous at this point. Thank you for allowing to participate in the care of the patient. <ELECTRONICALLY SIGNED> By: Gino Fair MD 05/29/18 1236 [id number] Fair MD /nt
--- NOTE | 2018-05-29 19:32 | NUR ---
PATIENT REMAINS ON NASAL CANNULA REQUIRES TIME TO RECOVER. TAKING PO. UP TO SIDE OF BED.
[2018-05-30] VITALS (7 sets, daily range): BP systolic 115–142; BP diastolic 50–59
[2018-05-30 02:44] LABS: HEMOGLOBIN 11.8 gm/dL (12.0-15.0); MCH 30.9 pg (26.0-34.0); MCHC 32.8 g/dL (28.0-37.0); MCV 94.1 fL (80.0-100.0); MPV 8.4 fl. (7.2-11.1); RBC 3.83 mil/uL (4.20-5.00); RDW-CV 14.5 % (10.5-14.5); WBC 14.2 thou/uL (4.0-11.0)
[2018-05-30 03:05] LABS: CALCIUM 8.3 mg/dL (8.5-10.1); CREATININE 0.7 mg/dL (0.6-1.3); MAGNESIUM 2.6 mg/dL (1.8-2.4); TOTAL BILIRUBIN 0.2 mg/dL (<0.1-1.0); TOTAL PROTEIN 6.1 g/dL (6.4-8.2)
--- NOTE | 2018-05-30 06:22 | NUR ---
VITALS STABLE, AFEBRILE. PATIENT SLEEPING THROUGH MOST OF THE NIGHT. BIPAP SINCE 2300, ON 6L PER HIGH FLOW NC BEFORE THAT WITH SPO2>90%. PATIENT ABLE TO SIT ON THE SIDE OF THE BED FOR ABOUT 30 MINS WHILE ON NC, DESATS TO 89-90% FOR A LITTLE BIT, THE RECOVERS. ABLE TO EAT MOST OF HER DINNER. PRN PAIN MEDS FOR BACK AND "LUNG PAIN". WANTS TO BE IN JENNINGS'S POSITION AT ALL TIMES. CALL LIGHT WITHIN REACH.
--- NOTE | 2018-05-30 08:42 | NUR ---
PT C/O OF BACK PAIN 08/20. PRN HYDROCODONE ADMININSTERED. PT REPORTS SHE WAS DIAGNOSED WITH COMPRESSION FRACTURE 1 YEAR AGO AND TOOK MUSCLE RELAXORS AND HYDROCODONE OR OXYCODONE FOR PAIN. PT REPORTS SHE WAS TAKEN OFF THE MEDICATION AND TAKES IBPROFEN AT HOME. PT REPORTS HE PAIN LEVEL WILL GO TO 0/10 AT HOME WITH IBPROFEN, SITTING IN RECLINER AND NO ACTIVITY. VSS. AFEBRILE. OXYGEN TITRATED TO 6L NC PT SATTING 89-92%. PT REPORTS AT HOME SHE WORE HER TRIOLOGY AND THAT SHE HAS DIFFICULTY SLEEPING WITH IT BECAUSE IT MAKES NOISE. PT ALSO REPORTS THAT HER OXYGEN WAS 82% ON TRIOLOGY AND THAT WHEN SHE SAW THAT, IT WOULD SCARE HER AND SHE WOULD SWITCH OVER TO HER NASAL CANULA. PT REPORTS THAT SHE FEELS SHE NEEDS MORE EXPLANATION ON TRIOLOGY MACHINE. ONE TOPIC SHE WOULD LIKE TO DISCUSS IS TRIOLOGY ALARMS. PT STATES SHE UNDERSTOOD THE TRIOLOGY WOULD ALARM IF HER OXYGEN GOT TO LOW AND TRIOLOGY DOES NOT ALARM.
[2018-05-30 08:51] LABS: BE 0.4 mmol/L (-2 to +3); PCO2 47.1 mmHg (35.0-45.0); pH 7.364 (7.340-7.450)
[2018-05-30 08:53] LABS: PO2 51.8 mmHg (75.0-100.0)
--- NOTE | 2018-05-30 11:00 | NUR ---
CHART REVIEWED, SPOKE WITH PT. PT SAID PRIOR TO HER HOSPITALIZATION 5 WEEKS, SHE WAS LIVING AT [facility] WITH HER AND INDEP. SHE HAS HOME O2 FROM [facility]. SHE GOT A TRILOGY FROM [facility] 5 WEEKS AGO, SHE SAID SHE ISN'T SURE IT WAS WORKING CORRECTLY RECENTLY, 'I DIDN'T GET MUCH TRAINING ON IT.' PT'S DTR HAS BEEN STAYING WITH HER TO HELP HER WITH ADL'S, ETC. PT PLANS ON RETURNING HOME WITH HER FAMILY, HER DTR CAN CONTINUE TO STAY WITH HER TO ASSIST NEEDED.
--- NOTE | 2018-05-30 13:12 | NUR ---
PT C/O OF "LUNGS HURTING". PULMONARY NOTIFIED. RECEIVED ORDER FOR TORADOL AND ADMINISTERED PER EMAR. PT REPORTS THIS SORENESS. PAIN WENT FROM 05/20 TO 03/22.
--- NOTE | 2018-05-30 18:00 | NUR ---
VSS. AFBEBRILE. OUTPUT RECORDED. PT REFUSING TURNS.
[2018-05-31] VITALS (7 sets, daily range): BP systolic 122–146; BP diastolic 53–65
--- NOTE | 2018-05-31 02:46 | NUR ---
ASSUMED CARE OF PATIENT AT 1900. VSS, AFEBRILE. STATES SHE IS EDEMATOUS AND THAT WE ARE NOT TREATING IT. EDUCATED ON LASIX GIVEN EARLIER IN THE DAY. ELEVATED PATIENTS FEET ON PILLOWS. SHE REMOVED THEM SHORTLY AFTER STATING NOTHING HELPS. FREQUENTLY REQUESTING IV PAIN MEDS, STATES NOTHING REALLY HELPS. REFUSES TURNS. ON BIPAP FOR LESS THEN TWO HOURS, REMOVED AT 0145 BECAUSE SHE STATED SHE JUST COULDN'T WEAR IT. HIGH FLOW NASAL CANNULA PLACED. DID GIVE PATIENT PRN PAIN MEDS ORDERED. VERY LITTLE RELIEF IF ANY NOTED. SMOKING CESSATION INIATED. STATES SHE SMOKES 1.5 PACKS A DAY. DOESN'T FEEL LIKE SHE IS ABLE TO QUIT AT THIS TIME. BECOMES VERY SOA WITH ANY ACTIVITY AND DESATS WELL. NOT PROGRESSING TOWARDS POC GOALS.
[2018-05-31 04:27] LABS: HEMATOCRIT 34.7 % (37.0-47.0); HEMOGLOBIN 11.5 gm/dL (12.0-15.0); MCH 31.1 pg (26.0-34.0); MCHC 33.1 g/dL (28.0-37.0); MCV 93.7 fL (80.0-100.0); MPV 8.7 fl. (7.2-11.1); RBC 3.71 mil/uL (4.20-5.00); RDW-CV 14.7 % (10.5-14.5); WBC 13.6 thou/uL (4.0-11.0)
[2018-05-31 05:01] LABS: ALBUMIN 2.9 g/dL (3.4-5.0); CALCIUM 8.1 mg/dL (8.5-10.1); CREATININE 0.9 mg/dL (0.6-1.3); MAGNESIUM 2.6 mg/dL (1.8-2.4); PHOSPHORUS* 2.5 mg/dL (2.5-4.9); POTASSIUM 3.7 mmol/L (3.5-5.1)
--- NOTE | 2018-05-31 16:40 | NUR ---
RECEIVED CONSULT TO SEE PATIENT FOR PALLIATIVE CARE. SPOKE WITH PT AND DTR. PT BEGAN TO CRY, ASKED WHY PEOPLE KEPT ASKING ABOUT THIS, 'AM I GOING TO ?' PT STATES SHE IS AWARE HER 'LUNGS ARE IN BAD SHAPE.' PT SAID WHEN SHE WAS IN THE ED AND THEY ASKED HER IF SHE WANTED TO BE INTUBATED, SHE TOLD THEM SHE DIDN'T WANT TO BE INTUBATED UNLESS IT WAS THE ONLY OPTION SHE HAD, THEN SHE WOULD WANT TO BE INTUBATED. SHE SAID SHE WOULDN'T WANT A TRACH AND WOULDN'T WANT TO BE KEPT ALIVE ON MACHINES, BUT SHE WOULD WANT EVERYTHING TRIED, INCLUDING INTUBATION. DTR IS AWARE OT PT'S WISHES AND AGREES. CONFIRMED WITH NURSING THAT PATIENT WANTS TO BE A FULL CODE. SPOKE BRIEFLY WITH DTR OUTSIDE OF THE ROOM, SHE IS AWARE THAT HER MOTHER HAS A SERIOUS LUNG CONDITION, SHE SAID SHE WOULD CONTINUE TO TALK TO HER ABOUT IT AND TO HELP HER UNDERSTAND. CASE MGT WILL CONTINUE TO FOLLOW, WILL CONTINUE TO TRY TO HAVE A MORE IN DEPTH DISCUSSION WITH PATIENT ABOUT CONTINUED PLAN OF CARE.
--- NOTE | 2018-05-31 17:49 | NUR ---
PATIENT TRANSFERED TO RM 210. UP FOR MEALS TAKING PO WELL. REQUIRES TIME FOR ANY PHYSICAL EFFORT. DISCUSSED WITH PATIENT DAUGHTER AND BRYANT CODE STATUS. DISCUSSED WITH NURSE INTUBATE ONLY FOR ARREST.
[2018-06-01] VITALS: BP 146/75
--- NOTE | 2018-06-01 03:19 | NUR ---
ASSUMED CARE OF PT AT 1900. PT IS ALERT AND ORIENTED. VSS. PERRLA. PT IS CURRENTLY TOLERATING BIPAP WELL. PT IS SINUS RYTHM ON THE TELEMETRY. PT IS RESTING COMFORTABLY IN BED. RESPIRATIONS ARE EVEN AND NONLABORED. WILL CONTINUE TO MONITOR PT.
[2018-06-01 04:00] VITALS: BP 142/55
[2018-06-01 06:00] LABS: CALCIUM 8.8 mg/dL (8.5-10.1); CREATININE 0.7 mg/dL (0.6-1.3); MAGNESIUM 2.8 mg/dL (1.8-2.4); POTASSIUM 3.7 mmol/L (3.5-5.1)
[2018-06-01 08:00] VITALS: BP 139/66
--- NOTE | 2018-06-01 08:00 | NUR ---
VSS, ASSUMED CARE IN THE AM, ASSESSMENT PERFORMED AND CHARTED, FALL PRECAUTIONS IN PLACE AND CALL LIGHT IN REACH. PT IS A&O4 AND UP WITH ONE AND TRACING SR ON THE MONITOR, PT GOAL IS TO SIT UP IN CHAIR, HAVE TONG TAKEN OUT, AND WORK WITH PT/OT AND IMPROVE BREATHING,
[2018-06-01 12:00] VITALS: BP 147/60
--- NOTE | 2018-06-01 12:30 | NUR ---
VSS, PT IS PROGRESSING TOWARDS GOAL TONG HAS BEEN TAKEN OUT, SHE HAS BEEN UP TO CHAIR, AND IS ON 5L NC, PT HAS SOME PAIN IN HER BACK AND RATES IT 6 OUT OF 10,
--- NOTE | 2018-06-01 13:35 | NUR ---
BEHAVIORAL HEALTH CARE MANAGER INFORMED THAT THE PATIENT IS CONCERNED THAT HER 'TRILOGY IS NOT WORKING RIGHT'. PATIENT'S DID NOT BRING THE TRILOGY TO THE HOSPITAL WITH HER, AND IS ON THE BIPAP HERE. D/C MARKER MACHINE ATTENDANT SPOKE TO SETH WITH NOAH TO INFORM OF THIS INFO. SETH RETURNED CALL AND INFORMS THAT THE PATIENT WILL CALL NOAH WHEN SHE D/C'S FROM THE HOSPITAL AND NOAH WILL COME TO HER HOME AND DO A RE-TEACH WITH HER AND HER DTR AND MAKE SURE THAT THE TRILOGY IS WORKING APPROPRIATELY. D/C MARKER MACHINE ATTENDANT ATEMPTED TO SEND SKILLED REFFERAL TO [facility], AND [facility]. BOTH FACILITIES WILL NOT HAVE BED AVAILABILITY UNTIL MON OR . D/C MARKER MACHINE ATTENDANT SENT REFERRAL TO [facility] PER PATIENT REQUEST AND FAXED SKILLED REFERRAL. PATIENT ONLY HAS 5 SKILLED DAYS REMAINING UNTIL CO-PAY DAYS OF 167.50 KICK IN. D/C MARKER MACHINE ATTENDANT INFORMED THE PATIENT OF THIS INFO AND SHE INFORMS THAT SHE STILL WANTS TO D/C TO SKILLED FOR AT LEAST THOSE 5 DAYS. D/C MARKER MACHINE ATTENDANT AWAITING A RETURN CALL FROM [facility] TO DISCUSS FURTHER. CM WILL REMAIN AVAILABLE TO ASSIST AND FOLLOW NEEDED.
--- NOTE | 2018-06-01 14:24 | NUR ---
BARREL LOADER INFORMED THAT THE PATIENT IS CONCERNED THAT HER 'TRILOGY IS NOT WORKING APPROPRIATELY'. PATIENT'S DTR O BRING THE TROLOGY TO THE HOSPITAL TODAY. D/C PROPAGATION MANAGER SPOKE TO SETH WITH NOAH, AND SHE INFORMS THAT THE R.T. WILL COME TO THE HSOPITAL TODAY TO ASSESS THE TRILOGY. PATIENT AND FAMILY IN AGREEMENT WITH THE PLAN. CM WILL REMAIN AVIALABLE TO ASSIST AND FOLLOW NEEDED.
--- NOTE | 2018-06-01 15:00 | NUR ---
KYRA, REACHED OUT TO RAFFI PT CARE ADMIN, PT DTR CALLED TO NURSING STATION AND COMPLAINS THAT HER MOM THE PATIENT WAS CRYING BECAUSE A PULMONARY DR. HAD COME IN HERE ROOM AND UPSET HER WITH COMMENTS, THE PT DTR AND BOY-FRIEND TALKED RAFFI AND MAKE SOME REMARKS ABOUT NEVER HAVING ANOTHER PULMONARY DR. VISIT HER MOM "THE PT" EVER, I HAVE REACHED OUT TO DR ARELLANO AND NOTIFYED HIM OF THE FAMILY WISHES.
[2018-06-01 16:00] VITALS: BP 111/60
[2018-06-02] VITALS: BP 151/73
[2018-06-02 04:00] VITALS: BP 142/60
--- NOTE | 2018-06-02 04:28 | NUR ---
ASSUMED CARE OF PT AT 1900. PT IS ALERT AND ORIENTED. VSS. PERRLA. PT IS ON 3 LITERS O2. PT IS SINUS RYTHM ON THE TELEMETRY. PT IS CURRENTLY WEARING HER HOME TRILOGY. PT IS SLEEPING COMFORTABLY IN BED. RESPIRATIONS ARE EVEN AND NONLABORED. WILL CONTINUE TO MONITOR PT.
[2018-06-02 08:51] VITALS: BP 145/69
--- NOTE | 2018-06-02 09:30 | NUR ---
REC'D REPORT FROM NOC RN, ASSUMED CARE OF PT APPROX 0730. A&OX4, ABLE TO COMMUNICATE NEEDS TO STAFF. ASSESSMENT COMPLETED. VS OBTAINED. SCHEDULE SUPERVISOR IN PLACE, SR, 60'S. O2 SAT 95% 4L/MIN NC, LABORED BREATHING. BREATHING TREATMENT IN PROGRESS. CALL LIGHT IN REACH. HOURLY ROUNDING FOR SAFETY AND PT NEEDS.
--- NOTE | 2018-06-02 11:00 | NUR ---
PATIENT C/O FEELING LIKE SHE HAS THRUSH IN HER MOUTH. ORAL ASSESSMENT COMPLETED WITH LIGHT, WITHOUT NOTING WHITE PATCHES, REDNESS OR OPEN ULCERS. WILL CONTINUE TO MONITOR.
[2018-06-02 12:05] VITALS: BP 143/71
[2018-06-02 16:00] VITALS: BP 149/63
[2018-06-02 19:55] VITALS: BP 131/57
[2018-06-03] VITALS: BP 139/63
[2018-06-03 04:00] VITALS: BP 131/61
[2018-06-03 04:42] LABS: HEMATOCRIT 35.8 % (37.0-47.0); HEMOGLOBIN 11.8 gm/dL (12.0-15.0); MCH 30.7 pg (26.0-34.0); MCV 93.1 fL (80.0-100.0); MPV 8.8 fl. (7.2-11.1); NUCLEATED RBCS 0 /100WBC; PLATELET COUNT* 265 thou/uL (150-400); RBC 3.84 mil/uL (4.20-5.00); RDW-CV 14.8 % (10.5-14.5); WBC 12.4 thou/uL (4.0-11.0)
[2018-06-03 05:02] LABS: CALCIUM 8.7 mg/dL (8.5-10.1); CREATININE 0.7 mg/dL (0.6-1.3); POTASSIUM 3.1 mmol/L (3.5-5.1)
[2018-06-03 06:43] LABS: ABSOLUTE LYMPHOCYTES 3.2 thou/uL (0.8-5.3); ABSOLUTE MONOCYTES 1.2 thou/uL (0.0-1.2); ABSOLUTE NEUTROPHILS 7.9 thou/uL (1.6-8.1)
[2018-06-03 06:44] LABS: ANISOCYTOSIS 1+; PLATELET ESTIMATE ADEQUATE; POIKILOCYTOSIS 1+
--- NOTE | 2018-06-03 07:02 | NUR ---
Pt reports she rested well overnight. VSS. Pt wore trilogy from approx 2300 to 0500. Pt up to [facility] with walker, states doing so independently. Will continue to monitor.
[2018-06-03 08:20] VITALS: BP 125/69
--- NOTE | 2018-06-03 09:00 | NUR ---
REC'D REPORT FROM NOC RN, ASSUMED CARE OF PATIENT APPROX 0730. A&OX4, ABLE TO COMMUNICATE NEEDS TO STAFF. ASSESSMENT COMPLETED, VS OBTAINED. RETAIL MANAGEMENT TRAINEE IN PLACE, SR. O2 SATS 97% 3L. UP WITH WALKER AND SBA. REINFORCED FALL PRECAUTIONS WITH PATIENT. VOICED AGREEMENT WITH PLAN. CALL LIGHT IN REACH. PATIENT IS UP IN CHAIR.
[2018-06-03] MEDS ORDERED: AUGMENTIN 875-1 EACH PO (09:32)
[2018-06-03] MEDS ORDERED: PROTONIX40 M1 PO (09:34)
[2018-06-03] MEDS ORDERED: NYSTATIN100000 UNI SW&SWALLOW (09:48)
[2018-06-03 09:51] VITALS: BP 125/69
[2018-06-03 12:35] VITALS: BP 128/59
== END 2018-06-03 13:30 | disposition home or self-care (01) | DRG 177 ==
LOC: M.ERS 04:18 → M.TBA-ER 05:32 → M.ICU 05:32 → M.2W 05-31 17:31
PROVIDERS: Emergency Medicine Emergency Medical Services; Family Medicine; Internal Medicine; Internal Medicine Pulmonary Disease; Personal Emergency Response Attendant; ADMIT Internal Medicine
PROC: 5A09357 Assistance with Respiratory Ventilation, Less than 24 Consecutive Hours, Continuous Positive Airway Pressure (ICD-10-PCS; principal; 2018-05-28)
PROC: 5A09357 Assistance with Respiratory Ventilation, Less than 24 Consecutive Hours, Continuous Positive Airway Pressure (ICD-10-PCS; 2018-05-29)
PROC: 5A09357 Assistance with Respiratory Ventilation, Less than 24 Consecutive Hours, Continuous Positive Airway Pressure (ICD-10-PCS; 2018-05-30)
DX: J15.6 Pneumonia due to other Gram-negative bacteria (principal); J96.21 Acute and chronic respiratory failure with hypoxia; J96.22 Acute and chronic respiratory failure with hypercapnia; J44.0 Chronic obstructive pulmonary disease with (acute) lower respiratory infection; J44.1 Chronic obstructive pulmonary disease with (acute) exacerbation; E87.2 Acidosis; J98.11 Atelectasis; J69.0 Pneumonitis due to inhalation of food and vomit; M54.9 Dorsalgia, unspecified; F32.9 Major depressive disorder, single episode, unspecified; G89.29 Other chronic pain; N18.9 Chronic kidney disease, unspecified; F41.9 Anxiety disorder, unspecified; I50.9 Heart failure, unspecified; F17.210 Nicotine dependence, cigarettes, uncomplicated; E66.01 Morbid (severe) obesity due to excess calories; M06.9 Rheumatoid arthritis, unspecified; Z71.6 Tobacco abuse counseling; Z68.39 Body mass index [BMI] 39.0-39.9, adult; Z87.311 Personal history of (healed) other pathological fracture; Z91.14 Patient's other noncompliance with medication regimen; Z90.49 Acquired absence of other specified parts of digestive tract; Z90.710 Acquired absence of both cervix and uterus; Z79.899 Other long term (current) drug therapy; Z88.1 Allergy status to other antibiotic agents; Z82.49 Family history of ischemic heart disease and other diseases of the circulatory system; Z82.5 Family history of asthma and other chronic lower respiratory diseases; J15.9 Unspecified bacterial pneumonia